=== PATIENT | female | born 1940 | race Hispanic/Latino ===

== ENCOUNTER → 2019-02-11 | Outpatient (CLI) | payer OTHER, MEDICAID ==
[~2019-02-11] MED LIST: ACET-2247 PO; ASPI-555 PO; ATEN100T PO; CITA-107 PO; FOLI0.8C PO; INSLAN SQ; INSU100V SQ; LIRA0.6P SQ; LOSA25TA41 PO; SIMV40TA5 PO
== END | disposition home or self-care (01) ==
LOC: RAH 14:03
PROVIDERS: ATTEND Internal Medicine
DX: G31.89 Other specified degenerative diseases of nervous system (principal)
CPT/HCPCS: 70450

== ENCOUNTER → 2019-03-30 | Outpatient (CLI) | payer OTHER, MEDICARE | END | disposition home or self-care (01) | LOC: RAH 09:08 | PROVIDERS: ATTEND Internal Medicine | DX: E04.2 Nontoxic multinodular goiter (principal) | CPT/HCPCS: 76536 ==

== ENCOUNTER 2019-06-27 14:06 | Emergency (ER) | payer OTHER, MEDICARE ==
[~2019-06-27 14:06] MED LIST changes: +SIMV-46 PO; -SIMV40TA5 PO
[2019-06-27] MEDS ORDERED: LIDOCAINE 1%-EPI 1:100,000 20 ML VIAL IJ ONE (15:08)
[2019-06-27 15:36] LABS: BASOPHILS % (AUTO) 0.4 % (0.0-5.0); EOSINOPHILS % (AUTO) 0.3 % (0.0-8.0); HEMATOCRIT 31.2 % (36-48); LYMPHOCYTES % (AUTO) 14.5 % (21.0-51.0); MEAN CORPUSCULAR HGB CONC 33.3 g/dL (32.0-36.0); MEAN CORPUSCULAR VOLUME 89.9 fL (79-99); MONOCYTES % (AUTO) 6.9 % (3.0-13.0); NEUTROPHILS % (AUTO) 77.5 % (40.0-77.0); PLATELET COUNT (AUTO) 224 K/uL (130-400); RED BLOOD CELL COUNT(AUTO) 3.47 MIL/uL (4.00-5.50); RED CELL DISTRIBUTION WIDTH 11.5 % (11.0-15.5); WHITE BLOOD COUNT (AUTO) 7.5 K/uL (4.8-10.8)
[2019-06-27 15:56] LABS: INR 0.93 (0.85-1.15); PARTIAL THROMBOPLASTIN TIME 24.3 SEC (26.3-35.5); PROTHROMBIN TIME 9.8 SEC (9.6-11.6)
[2019-06-27 16:47] LABS: POTASSIUM 4.9 mmol/L (3.5-5.1)
[2019-06-27 16:51] LABS: ALBUMIN 3.1 g/dL (3.5-5.0); BILIRUBIN,TOTAL 0.5 mg/dL (0.2-1.0)
[2019-06-27] MEDS ORDERED: ACETAMINOPHEN EXTRA STRENGTH 500 MG TABLET ONE (17:00)
[2019-06-27] MEDS ORDERED: TETANUS/DIPHTHERIA TOXOID [ADULT] 0.5 ML VIAL IM ONE (17:00)
== END 2019-06-27 17:13 | disposition home or self-care (01) ==
LOC: EDH 14:06
DX: S61.411A Laceration without foreign body of right hand, initial encounter (principal); S46.912A Strain of unspecified muscle, fascia and tendon at shoulder and upper arm level, left arm, initial encounter; S00.83XA Contusion of other part of head, initial encounter; S80.212A Abrasion, left knee, initial encounter; S80.211A Abrasion, right knee, initial encounter; E11.9 Type 2 diabetes mellitus without complications; I10 Essential (primary) hypertension; W01.0XXA Fall on same level from slipping, tripping and stumbling without subsequent striking against object, initial encounter; Y93.01 Activity, walking, marching and hiking; Y92.098 Other place in other non-institutional residence as the place of occurrence of the external cause; Y99.8 Other external cause status
CPT/HCPCS: 12044; 36415; 70450; 72125; 73030; 73130; 80053; 85025; 85610; 85730; 90471; 90714; 99285; J3490

== ENCOUNTER → 2020-03-19 | Outpatient (CLI) | payer OTHER, MEDICARE ==
[~2020-03-19] MED LIST changes: -ASPI-555 PO; +ASPI-556 PO
== END | disposition home or self-care (01) ==
LOC: RAH 10:05
PROVIDERS: ATTEND Internal Medicine
DX: R06.02 Shortness of breath (principal)
CPT/HCPCS: 71046

== ENCOUNTER 2020-03-26 19:43 | Emergency (ER) | payer OTHER, MEDICARE ==
[2020-03-26 21:02] LABS: BASOPHILS % (AUTO) 0.9 % (0.0-5.0); EOSINOPHILS % (AUTO) 3.2 % (0.0-8.0); HEMATOCRIT 30.9 % (36-48); LYMPHOCYTES % (AUTO) 28.6 % (21.0-51.0); MEAN CORPUSCULAR HGB CONC 33.3 g/dL (32.0-36.0); MEAN CORPUSCULAR VOLUME 90.1 fL (79-99); MONOCYTES % (AUTO) 15.7 % (3.0-13.0); NEUTROPHILS % (AUTO) 51.4 % (40.0-77.0); PLATELET COUNT (AUTO) 182 K/uL (130-400); RED BLOOD CELL COUNT(AUTO) 3.43 MIL/uL (4.00-5.50); RED CELL DISTRIBUTION WIDTH 12.3 % (11.0-15.5); WHITE BLOOD COUNT (AUTO) 4.3 K/uL (4.8-10.8)
[2020-03-26 21:15] LABS: CREATININE 1.7 mg/dL (0.5-1.5); POTASSIUM 4.9 mmol/L (3.5-5.1)
[2020-03-26] MEDS ORDERED: ALPRAZOLAM 0.25 MG TABLET ONE (21:43)
== END 2020-03-26 22:00 | disposition home or self-care (01) ==
LOC: EDH 19:43
DX: I10 Essential (primary) hypertension (principal); E11.9 Type 2 diabetes mellitus without complications; Z79.899 Other long term (current) drug therapy; Z98.890 Other specified postprocedural states
CPT/HCPCS: 36415; 80048; 84484; 85025; 93005

== ENCOUNTER 2020-03-28 15:38 | Observation (INO) | payer OTHER, MEDICARE ==
[~2020-03-28] VITALS: Ht 167.6 cm; Wt 86.2 kg
[2020-03-28 16:33] LABS: BASOPHILS % (AUTO) 0.5 % (0.0-5.0); HEMATOCRIT 31.2 % (36-48); LYMPHOCYTES % (AUTO) 29.5 % (21.0-51.0); MEAN CORPUSCULAR HEMOGLOBIN 29.8 pg (27.0-33.0); MEAN CORPUSCULAR VOLUME 87.6 fL (79-99); MONOCYTES % (AUTO) 11.6 % (3.0-13.0); NEUTROPHILS % (AUTO) 56.2 % (40.0-77.0); PLATELET COUNT (AUTO) 186 K/uL (130-400); RED BLOOD CELL COUNT(AUTO) 3.56 MIL/uL (4.00-5.50); RED CELL DISTRIBUTION WIDTH 11.9 % (11.0-15.5); WHITE BLOOD COUNT (AUTO) 5.5 K/uL (4.8-10.8)
[2020-03-28 16:45] LABS: CREATININE 1.6 mg/dL (0.5-1.5)
[2020-03-28 16:46] LABS: INR 0.9 (0.85-1.15); PARTIAL THROMBOPLASTIN TIME 24.9 SEC (26.3-35.5); PROTHROMBIN TIME 9.8 SEC (9.6-11.6)
[2020-03-28 16:50] LABS: ALBUMIN 3.5 g/dL (3.5-5.0); BILIRUBIN,TOTAL 0.4 mg/dL (0.2-1.0); TOTAL PROTEIN, SERUM 7.3 g/dL (6.0-8.3)
[2020-03-28 17:00] LABS: B-TYPE NATRIURETIC PEPTIDE 88 pg/mL (0-100)
[2020-03-28] MEDS ORDERED: INSULIN HUMULIN R 100 UNIT/ML 3ML ONE (17:47)
[2020-03-28] MEDS ORDERED: SODIUM CHLORIDE 0.9% 500ML 500 ML IV ONE ×2 (17:48→18:29)
[2020-03-28] MEDS ORDERED: CLONIDINE HCL 0.1 MG TABLET PO PRN (20:30)
[2020-03-28] MEDS ORDERED: HYDRALAZINE HCL 25 MG TABLET ONE (20:55)
[2020-03-28] MEDS ORDERED: CARVEDILOL 6.25 MG TABLET PO ONE (20:55)
[2020-03-28] MEDS: CARVEDILOL 6.25 MG TABLET PO SCH (21:00)
[2020-03-28] MEDS: HYDRALAZINE HCL 25 MG TABLET PO SCH (21:00)
[2020-03-28] MEDS ORDERED: CARV12.511 PO (23:28)
[2020-03-28] MEDS ORDERED: CLON0.1T PO (23:28)
[2020-03-28] MEDS ORDERED: HYDR-4153 PO (23:28)
[2020-03-28] MEDS ORDERED: FURO20TA4 PO (23:28)
[2020-03-29 00:29] VITALS: BP 152/61
[2020-03-29 04:59] VITALS: BP 122/48
[2020-03-29] MEDS: INSULIN R PO SS1 SQ SCH ×2 (07:30→12:26)
[2020-03-29 08:00] VITALS: BP 145/62
[2020-03-29] MEDS ORDERED: MAG HYDROX/AL HYDROX/SIMETH ES 30 ML SUSP UDCUP PO PRN (08:00)
[2020-03-29] MEDS ORDERED: SODIUM CHLORIDE 0.9% 1000ML 1,000 ML IV SCH (08:00)
[2020-03-29] MEDS ORDERED: ONDANSETRON HCL 4 MG/2 ML VIAL IV PRN (08:00)
[2020-03-29] MEDS ORDERED: ACETAMINOPHEN 325 MG TAB PO PRN ×2 (08:00)
[2020-03-29] MEDS ORDERED: LACTULOSE 20 GM/30 ML UDCUP PO PRN (08:00)
[2020-03-29] MEDS ORDERED: FUROSEMIDE 10 MG/ML 4ML VIAL IV SCH (08:15)
[2020-03-29] MEDS ORDERED: INSLAN SQ (08:27)
[2020-03-29] MEDS ORDERED: INSU100V SQ (08:27)
[2020-03-29] MEDS ORDERED: CLON0.1T PO (08:27)
[2020-03-29] MEDS ORDERED: AEC81 PO (08:27)
[2020-03-29 08:51] LABS: CREATININE 1.6 mg/dL (0.5-1.5); POTASSIUM 5.4 mmol/L (3.5-5.1)
[2020-03-29] MEDS ORDERED: FAMOTIDINE 20MG TAB 20 MG TAB PO SCH (09:00)
[2020-03-29] MEDS ORDERED: NON-FORMULARY MEDICATION 1 EACH (Atenolol 100 MG) PO SCH (09:00)
[2020-03-29] MEDS ORDERED: ENOXAPARIN SODIUM 30 MG/0.3 ML SQ SCH (09:00)
[2020-03-29] MEDS ORDERED: CITALOPRAM 20 MG TABLET PO SCH (09:00)
[2020-03-29] MEDS ORDERED: LOSARTAN 100 MG TABLET PO SCH ×2 (09:00)
[2020-03-29] MEDS ORDERED: FOLIC ACID 1 MG TABLET PO SCH (09:00)
[2020-03-29] MEDS ORDERED: FUROSEMIDE 20 MG TABLET PO SCH (09:00)
[2020-03-29] MEDS: HYDRALAZINE HCL 25 MG TABLET PO SCH (09:31)
[2020-03-29] MEDS: CARVEDILOL 6.25 MG TABLET PO SCH (09:32)
[2020-03-29] MEDS ORDERED: LOSARTAN 100 MG TABLET ONE (09:47)
[2020-03-29 12:00] VITALS: BP 130/53
[2020-03-29] MEDS ORDERED: INSULIN GLARGINE 100 UNITS/ML 10 ML VIAL SQ SCH (12:00)
[2020-03-29] MEDS ORDERED: DEXTROSE 50%-WATER 50 ML DISP.SYRIN IV PRN (12:00)
[2020-03-29] MEDS ORDERED: GLUCAGON 1MG KIT 1 MG ML IM PRN (12:00)
[2020-03-29] MEDS ORDERED: CARV12.511 PO (14:28)
[2020-03-29] MEDS ORDERED: FURO40TA5 PO (14:28)
[2020-03-29] MEDS ORDERED: INSULIN HUMULIN R 100 UNIT/ML 3ML SQ SCH (16:30)
[2020-03-29] MEDS ORDERED: SIMVASTATIN 20 MG TABLET PO SCH (21:00)
[2020-03-29] MEDS ORDERED: ASPIRIN 81 MG EC TAB PO SCH (21:00)
== END 2020-03-29 16:15 | disposition home or self-care (01) ==
LOC: EDH 15:38 → EDHIP 18:27 → 3DH 21:45
PROVIDERS: ADMIT Internal Medicine; ATTEND Internal Medicine
DX: I13.0 Hypertensive heart and chronic kidney disease with heart failure and stage 1 through stage 4 chronic kidney disease, or unspecified chronic kidney disease (principal); E11.22 Type 2 diabetes mellitus with diabetic chronic kidney disease; I50.32 Chronic diastolic (congestive) heart failure; N18.30 Chronic kidney disease, stage 3 unspecified; E11.42 Type 2 diabetes mellitus with diabetic polyneuropathy; E11.3513 Type 2 diabetes mellitus with proliferative diabetic retinopathy with macular edema, bilateral; E11.51 Type 2 diabetes mellitus with diabetic peripheral angiopathy without gangrene; E78.2 Mixed hyperlipidemia; E86.0 Dehydration; I65.23 Occlusion and stenosis of bilateral carotid arteries; I70.0 Atherosclerosis of aorta; F32.1 Major depressive disorder, single episode, moderate; E04.2 Nontoxic multinodular goiter; E87.1 Hypo-osmolality and hyponatremia; E11.65 Type 2 diabetes mellitus with hyperglycemia; I27.20 Pulmonary hypertension, unspecified; R32 Unspecified urinary incontinence; Z86.73 Personal history of transient ischemic attack (TIA), and cerebral infarction without residual deficits; Z79.4 Long term (current) use of insulin; Z79.82 Long term (current) use of aspirin; Z79.899 Other long term (current) drug therapy
CPT/HCPCS: 36415 ×2; 71045; 80048; 80053; 82550; 82948 ×2; 83880; 84484; 85025; 85610; 85730; 93005; 96372; 96374; 99285; G0378 ×7; J1650; J1815 ×2; J1940; J7040 ×2

== ENCOUNTER 2020-12-01 10:37 | Inpatient (IN) | payer OTHER, MEDICARE ==
[2020-11-30] MEDS: AZITHROMYCIN 250 MG TABLET PO SCH (19:55)
[~2020-12-01] VITALS: Ht 167.6 cm; Wt 85.5 kg
[2020-12-01] VITALS (7 sets, daily range): BP systolic 119–151; BP diastolic 40–80
[2020-12-01] MEDS: INSULIN R PO SS1 SQ SCH ×2 (07:30→16:30)
[~2020-12-01 10:37] MED LIST changes: -ACET-2247 PO; +AEC81 PO; -ASPI-556 PO; -ATEN100T PO; +CARV12.511 PO; +CLON0.1T PO; +FURO20TA4 PO; +FURO40TA5 PO; +HYDR-4153 PO; -LIRA0.6P SQ
[2020-12-01 12:28] LABS: BASOPHILS % (AUTO) 0.4 % (0.0-5.0); EOSINOPHILS % (AUTO) 0.8 % (0.0-8.0); HEMATOCRIT 29.9 % (36-48); LYMPHOCYTES % (AUTO) 16.4 % (21.0-51.0); MEAN CORPUSCULAR HGB CONC 32.4 g/dL (32.0-36.0); MEAN CORPUSCULAR VOLUME 95.5 fL (79-99); PLATELET COUNT (AUTO) 149 K/uL (130-400); RED BLOOD CELL COUNT(AUTO) 3.13 MIL/uL (4.00-5.50); RED CELL DISTRIBUTION WIDTH 12.7 % (11.0-15.5); WHITE BLOOD COUNT (AUTO) 8.5 K/uL (4.8-10.8)
[2020-12-01 12:45] LABS: INR 1.04 (0.85-1.15); PROTHROMBIN TIME 11.3 SEC (9.6-11.6)
[2020-12-01 12:50] LABS: ALBUMIN 2.9 g/dL (3.5-5.0); B-TYPE NATRIURETIC PEPTIDE 123 pg/mL (0-100); BILIRUBIN,TOTAL 0.6 mg/dL (0.2-1.0); CREATININE 1.4 mg/dL (0.5-1.5); MAGNESIUM 1.5 mg/dL (1.80-2.40); POTASSIUM 4.7 mmol/L (3.5-5.1); TOTAL PROTEIN, SERUM 6.2 g/dL (6.0-8.3)
[2020-12-01] MEDS ORDERED: POTASSIUM CHLORIDE 10% ELIXIR 20 MEQ/15 ML UDCUP PO PRN (15:00)
[2020-12-01] MEDS ORDERED: DEXTROSE 50%-WATER 50 ML DISP.SYRIN IV PRN (15:00)
[2020-12-01] MEDS: AZITHROMYCIN 250 MG TABLET PO SCH ×2 (15:00→19:59)
[2020-12-01] MEDS ORDERED: LIDOCAINE HCL-MPF 1% 2ML VIAL IJ PRN (15:00)
[2020-12-01] MEDS ORDERED: KCL 20 MEQ ERTAB PO PRN (15:00)
[2020-12-01] MEDS ORDERED: POTASSIUM CHLORIDE 20MEQ/100ML 100 ML IV PRN (15:00)
[2020-12-01] MEDS ORDERED: ALBUTEROL 0.083% 2.5 MG/3 ML INH IH PRN (15:00)
[2020-12-01] MEDS ORDERED: FUROSEMIDE 40MG VIAL IVP ONE (15:00)
[2020-12-01] MEDS ORDERED: 0.9%NACL 10ML VIAL IVP PRN (15:00)
[2020-12-01] MEDS ORDERED: GLUCAGON 1MG KIT 1 MG ML IM PRN (15:00)
[2020-12-01] MEDS ORDERED: ATOR40TA71 PO (17:47)
[2020-12-02] VITALS (8 sets, daily range): BP systolic 108–189; BP diastolic 34–83
[2020-12-02] MEDS ORDERED: FLUT1BLS3 IH (01:04)
[2020-12-02] MEDS ORDERED: ACETAMINOPHEN 325 MG TAB PO PRN (01:30)
[2020-12-02] MEDS ORDERED: ASPIRIN 81 MG EC TAB PO SCH (01:30)
[2020-12-02] MEDS ORDERED: GUAIFENESIN-CODEINE 5 ML SYRUP PO PRN (01:30)
[2020-12-02] MEDS ORDERED: DIPHENHYDRAMINE HCL 25 MG CAPSULE PO PRN (01:30)
[2020-12-02] MEDS ORDERED: DEXTROSE 50%-WATER 50 ML DISP.SYRIN IV PRN (01:30)
[2020-12-02] MEDS ORDERED: NITROGLYCERIN 0.4 MG SL TAB SL PRN (01:30)
[2020-12-02] MEDS ORDERED: POTASSIUM CHLORIDE 20MEQ/100ML 100 ML IV PRN (01:30)
[2020-12-02] MEDS ORDERED: LIDOCAINE HCL-MPF 1% 2ML VIAL IV PRN (01:30)
[2020-12-02] MEDS ORDERED: ONDANSETRON 4MG INJ IV PRN (01:30)
[2020-12-02] MEDS ORDERED: GLUCAGON 1MG KIT 1 MG ML IM PRN (01:30)
[2020-12-02] MEDS ORDERED: LACTULOSE 20 GM/30 ML UDCUP PO PRN (01:30)
[2020-12-02] MEDS ORDERED: KCL 20 MEQ ERTAB PO PRN (01:30)
[2020-12-02] MEDS ORDERED: POTASSIUM CHLORIDE 10% ELIXIR 20 MEQ/15 ML UDCUP PO PRN (01:30)
[2020-12-02] MEDS ORDERED: DiphenhydrAMINE HCL 50 MG/ML VIAL IV PRN (01:30)
[2020-12-02] MEDS ORDERED: MAG/ALUM/SIMETH 30 ML UDCUP PO PRN (01:30)
[2020-12-02] MEDS ORDERED: ALBUTEROL 0.083% 2.5 MG/3 ML INH IH PRN (01:30)
[2020-12-02] MEDS: HYDRALAZINE 25MG TABLET PO SCH ×2 (01:47→21:25)
[2020-12-02] MEDS ORDERED: HYDRALAZINE 25MG TABLET ONE (01:47)
[2020-12-02] MEDS: INSULIN R PO SS1 SQ SCH ×4 (07:30→21:00)
[2020-12-02] MEDS: ALBUTEROL 0.083% 2.5 MG/3 ML INH IH SCH ×4 (07:31→23:44)
[2020-12-02] MEDS ORDERED: LOSARTAN 25 MG TABLET PO ONE (07:33)
[2020-12-02] MEDS ORDERED: HYDRALAZINE 20MG/ML VIAL IM PRN (08:00)
[2020-12-02] MEDS: ATORVASTATIN 40 MG TABLET PO SCH (08:00)
[2020-12-02] MEDS: CARVEDILOL 12.5 MG TABLET PO SCH ×2 (08:00→21:25)
[2020-12-02] MEDS: LOSARTAN 25 MG TABLET PO SCH (08:00)
[2020-12-02] MEDS: FUROSEMIDE 40 MG TABLET PO SCH (08:00)
[2020-12-02] MEDS: PANTOPRAZOLE 40 MG TAB DR PO SCH (08:00)
[2020-12-02] MEDS: CITALOPRAM 20 MG TABLET PO SCH (08:00)
[2020-12-02] MEDS: NITROGLYCERIN 1GM OINT 1 INCH/1GM TD SCH ×3 (08:00→18:00)
[2020-12-02] MEDS: ENOXAPARIN SODIUM 30 MG/0.3 ML SQ SCH (08:01)
[2020-12-02 08:23] LABS: HEMATOCRIT 32.8 % (36-48); MEAN CORPUSCULAR HEMOGLOBIN 30.3 pg (27.0-33.0); MEAN CORPUSCULAR VOLUME 94.5 fL (79-99); RED BLOOD CELL COUNT(AUTO) 3.47 MIL/uL (4.00-5.50); RED CELL DISTRIBUTION WIDTH 12.7 % (11.0-15.5); WHITE BLOOD COUNT (AUTO) 7.3 K/uL (4.8-10.8)
[2020-12-02 08:26] LABS: CREATININE 1.3 mg/dL (0.5-1.5); POTASSIUM 4.1 mmol/L (3.5-5.1)
[2020-12-02] MEDS: ASPIRIN 81 MG EC TAB PO SCH (09:00)
[2020-12-02] MEDS: INSULIN GLARGINE 100 UNITS/ML 10 ML VIAL SQ SCH (09:00)
[2020-12-02] MEDS: AMLODIPINE 5 MG TAB PO SCH (11:59)
[2020-12-02] MEDS: ACETAMINOPHEN 325 MG TAB PO PRN (18:51)
[2020-12-03] VITALS (12 sets, daily range): BP systolic 86–182; BP diastolic 32–63
[2020-12-03 03:31] LABS: HEMATOCRIT 31.2 % (36-48); MEAN CORPUSCULAR HEMOGLOBIN 31.2 pg (27.0-33.0); MEAN CORPUSCULAR HGB CONC 32.7 g/dL (32.0-36.0); MEAN CORPUSCULAR VOLUME 95.4 fL (79-99); RED BLOOD CELL COUNT(AUTO) 3.27 MIL/uL (4.00-5.50); RED CELL DISTRIBUTION WIDTH 12.7 % (11.0-15.5); WHITE BLOOD COUNT (AUTO) 7.3 K/uL (4.8-10.8)
[2020-12-03 03:43] LABS: CREATININE 1.6 mg/dL (0.5-1.5); POTASSIUM 4.8 mmol/L (3.5-5.1)
[2020-12-03] MEDS: NITROGLYCERIN 1GM OINT 1 INCH/1GM TD SCH ×2 (05:45)
[2020-12-03] MEDS: INSULIN R PO SS1 SQ SCH ×4 (05:55→21:18)
[2020-12-03] MEDS: ALBUTEROL 0.083% 2.5 MG/3 ML INH IH SCH ×4 (06:48→22:58)
[2020-12-03] MEDS ORDERED: NITROGLYCERIN 2 MG VIAL IV ONE (07:29)
[2020-12-03] MEDS ORDERED: IOHEXOL 350 MG/ML 100ML INFUS..BTL IV ONE (07:29)
[2020-12-03] MEDS ORDERED: HEPARIN 10,000 UNIT/10ML (1,000 UNIT/ML) VIAL ONE (07:29)
[2020-12-03] MEDS ORDERED: IOHEXOL-350 50ML VIAL IV ONE (07:29)
[2020-12-03] MEDS ORDERED: BIVALIRUDIN 250 MG/VIAL IV ONE (07:29)
[2020-12-03] MEDS ORDERED: LIDOCAINE HCL 400MG/20ML VIAL ONE (07:30)
[2020-12-03] MEDS ORDERED: FENTANYL CITRATE PF 50 MCG/1 ML 2ML VIAL ONE (07:30)
[2020-12-03] MEDS ORDERED: MIDAZOLAM HCL 1 MG/ML 2ML VIAL ONE (07:30)
[2020-12-03] MEDS ORDERED: LABETALOL 20MG VIAL IV ONE (08:37)
[2020-12-03] MEDS ORDERED: HYDRALAZINE 20MG/ML VIAL IV PRN (09:00)
[2020-12-03] MEDS ORDERED: 0.9%NACL 1000ML 1,000 ML IV SCH (09:00)
[2020-12-03] MEDS: ENOXAPARIN SODIUM 30 MG/0.3 ML SQ SCH (09:00)
[2020-12-03] MEDS: CITALOPRAM 20 MG TABLET PO SCH (09:38)
[2020-12-03] MEDS: ATORVASTATIN 40 MG TABLET PO SCH (09:38)
[2020-12-03] MEDS: AMLODIPINE 5 MG TAB PO SCH (09:38)
[2020-12-03] MEDS: FUROSEMIDE 40 MG TABLET PO SCH (09:39)
[2020-12-03] MEDS: ASPIRIN 81 MG EC TAB PO SCH (09:39)
[2020-12-03] MEDS: CARVEDILOL 12.5 MG TABLET PO SCH ×2 (09:39→21:14)
[2020-12-03] MEDS: LOSARTAN 25 MG TABLET PO SCH (09:43)
[2020-12-03] MEDS: PANTOPRAZOLE 40 MG TAB DR PO SCH (09:43)
[2020-12-03] MEDS: HYDRALAZINE 25MG TABLET PO SCH ×2 (09:44→21:00)
[2020-12-03] MEDS: ISOSORBIDE MONO 60MG SR TAB PO SCH (09:46)
[2020-12-03] MEDS: INSULIN GLARGINE 100 UNITS/ML 10 ML VIAL SQ SCH (10:12)
[2020-12-03] MEDS: ACETAMINOPHEN 325 MG TAB PO PRN (10:34)
[2020-12-03] MEDS ORDERED: AMLO5TAB4 PO (10:44)
[2020-12-03] MEDS ORDERED: AEC81 PO (10:44)
[2020-12-03] MEDS ORDERED: ISOS60TA77 PO (10:45)
[2020-12-03] MEDS: AZITHROMYCIN 250 MG TABLET PO SCH (14:50)
[2020-12-04 03:10] VITALS: BP 124/55
[2020-12-04] MEDS: INSULIN R PO SS1 SQ SCH ×3 (06:07→20:50)
[2020-12-04] MEDS: ALBUTEROL 0.083% 2.5 MG/3 ML INH IH SCH ×3 (06:46→18:58)
[2020-12-04 08:46] VITALS: BP 136/55
[2020-12-04 09:01] LABS: POTASSIUM 4.4 mmol/L (3.5-5.1)
[2020-12-04] MEDS: PANTOPRAZOLE 40 MG TAB DR PO SCH (10:35)
[2020-12-04] MEDS: ASPIRIN 81 MG EC TAB PO SCH (10:35)
[2020-12-04] MEDS: ATORVASTATIN 40 MG TABLET PO SCH (10:35)
[2020-12-04] MEDS: CARVEDILOL 12.5 MG TABLET PO SCH ×2 (10:35→20:42)
[2020-12-04] MEDS: CITALOPRAM 20 MG TABLET PO SCH (10:35)
[2020-12-04] MEDS: ISOSORBIDE MONO 60MG SR TAB PO SCH (10:37)
[2020-12-04] MEDS: ENOXAPARIN SODIUM 30 MG/0.3 ML SQ SCH (10:37)
[2020-12-04] MEDS: AMLODIPINE 5 MG TAB PO SCH (10:37)
[2020-12-04] MEDS: HYDRALAZINE 25MG TABLET PO SCH ×2 (10:38→20:41)
[2020-12-04] MEDS: INSULIN GLARGINE 100 UNITS/ML 10 ML VIAL SQ SCH (10:40)
[2020-12-04] MEDS: 0.9%NACL 1000ML 1,000 ML IV SCH ×2 (10:44→20:00)
[2020-12-04 11:42] VITALS: BP 136/62
[2020-12-04 16:54] VITALS: BP 120/52
[2020-12-04 19:00] VITALS: BP 118/49
[2020-12-04 23:56] VITALS: BP 142/54
[2020-12-05] MEDS: ALBUTEROL 0.083% 2.5 MG/3 ML INH IH SCH ×2 (00:26→06:32)
[2020-12-05 02:45] LABS: POTASSIUM 4.1 mmol/L (3.5-5.1)
[2020-12-05 04:00] VITALS: BP 139/56
[2020-12-05] MEDS: 0.9%NACL 1000ML 1,000 ML IV SCH (06:00)
[2020-12-05] MEDS: INSULIN R PO SS1 SQ SCH ×2 (06:09→13:15)
[2020-12-05 08:00] VITALS: BP 152/65
[2020-12-05] MEDS ORDERED: NITR0.4T SL (08:32)
[2020-12-05] MEDS: ASPIRIN 81 MG EC TAB PO SCH (10:14)
[2020-12-05] MEDS: CARVEDILOL 12.5 MG TABLET PO SCH (10:14)
[2020-12-05] MEDS: PANTOPRAZOLE 40 MG TAB DR PO SCH (10:15)
[2020-12-05] MEDS: ATORVASTATIN 40 MG TABLET PO SCH (10:15)
[2020-12-05] MEDS: HYDRALAZINE 25MG TABLET PO SCH (10:15)
[2020-12-05] MEDS: ENOXAPARIN SODIUM 30 MG/0.3 ML SQ SCH (10:16)
[2020-12-05] MEDS: INSULIN GLARGINE 100 UNITS/ML 10 ML VIAL SQ SCH (10:31)
[2020-12-05 12:38] VITALS: BP 123/44
[2020-12-05] MEDS: ISOSORBIDE MONO 60MG SR TAB PO SCH (13:10)
[2020-12-05] MEDS: AMLODIPINE 5 MG TAB PO SCH (13:10)
[2020-12-05] MEDS: CITALOPRAM 20 MG TABLET PO SCH (13:11)
== END 2020-12-05 16:22 | disposition home or self-care (01) | DRG 280 ==
LOC: EDH 10:37 → OBSVTOIN 14:20 → EDHIP 14:20 → 4DH 12-02 22:06
PROVIDERS: ADMIT Internal Medicine; ATTEND Internal Medicine
PROC: 4A023N7 Measurement of Cardiac Sampling and Pressure, Left Heart, Percutaneous Approach (ICD-10-PCS; principal; 2020-12-03)
PROC: B2111ZZ Fluoroscopy of Multiple Coronary Arteries using Low Osmolar Contrast (ICD-10-PCS; 2020-12-03)
PROC: B2151ZZ Fluoroscopy of Left Heart using Low Osmolar Contrast (ICD-10-PCS; 2020-12-03)
DX: I21.4 Non-ST elevation (NSTEMI) myocardial infarction (principal); I50.33 Acute on chronic diastolic (congestive) heart failure; I13.0 Hypertensive heart and chronic kidney disease with heart failure and stage 1 through stage 4 chronic kidney disease, or unspecified chronic kidney disease; F32.1 Major depressive disorder, single episode, moderate; I31.3 Pericardial effusion (noninflammatory); J44.0 Chronic obstructive pulmonary disease with (acute) lower respiratory infection; J20.9 Acute bronchitis, unspecified; N18.32 Chronic kidney disease, stage 3b; E04.2 Nontoxic multinodular goiter; E11.319 Type 2 diabetes mellitus with unspecified diabetic retinopathy without macular edema; E78.5 Hyperlipidemia, unspecified; F41.9 Anxiety disorder, unspecified; H35.30 Unspecified macular degeneration; I25.10 Atherosclerotic heart disease of native coronary artery without angina pectoris; I25.84 Coronary atherosclerosis due to calcified coronary lesion; I27.20 Pulmonary hypertension, unspecified; I35.8 Other nonrheumatic aortic valve disorders; E11.22 Type 2 diabetes mellitus with diabetic chronic kidney disease; E11.65 Type 2 diabetes mellitus with hyperglycemia; E11.311 Type 2 diabetes mellitus with unspecified diabetic retinopathy with macular edema; E11.51 Type 2 diabetes mellitus with diabetic peripheral angiopathy without gangrene; I70.0 Atherosclerosis of aorta; M19.90 Unspecified osteoarthritis, unspecified site; N39.498 Other specified urinary incontinence; Z20.822 Contact with and (suspected) exposure to COVID-19; Z79.899 Other long term (current) drug therapy; I25.2 Old myocardial infarction; Z79.4 Long term (current) use of insulin; Z86.73 Personal history of transient ischemic attack (TIA), and cerebral infarction without residual deficits; Z82.3 Family history of stroke; Z83.3 Family history of diabetes mellitus; Z82.5 Family history of asthma and other chronic lower respiratory diseases; Z82.49 Family history of ischemic heart disease and other diseases of the circulatory system
CPT/HCPCS: 36415; 71045; 80048; 80053; 82550; 82948; 83735; 83880; 84484; 85025; 85027; 85610; 87635; 87804; 93005; 93306; 93356; 93458; 94640; 94664; 99156; 99157; C1769; C1887; C1894; C9803; G0378; J0583; J1644; J1650; J1815; J1940; J2250; J3010; J3490; J7030; Q9967

== ENCOUNTER 2022-02-22 12:10 | Emergency (ER) | payer OTHER, MEDICARE ==
[~2022-02-22] VITALS: Ht 170.2 cm; Wt 84.4 kg
[~2022-02-22 12:10] MED LIST changes: +AMLO5TAB4 PO; +ATOR40TA71 PO; +FLUT1BLS3 IH; -FURO20TA4 PO; +ISOS60TA77 PO; +NITR0.4T SL; -SIMV-46 PO
[2022-02-22] MEDS ORDERED: LIDOCAINE 5% TOPICAL PATCH TP ONE (15:30)
[2022-02-22] MEDS ORDERED: CYCL5TAB PO (15:32)
[2022-02-22 15:33] VITALS: BP 129/48
== END 2022-02-22 16:15 | disposition home or self-care (01) ==
LOC: EDH 12:10
DX: M54.50 Low back pain, unspecified (principal); E11.9 Type 2 diabetes mellitus without complications; I10 Essential (primary) hypertension; Z79.4 Long term (current) use of insulin; Z79.82 Long term (current) use of aspirin; Z79.899 Other long term (current) drug therapy; W01.198A Fall on same level from slipping, tripping and stumbling with subsequent striking against other object, initial encounter; Y93.89 Activity, other specified; Y92.89 Other specified places as the place of occurrence of the external cause; Y99.8 Other external cause status
CPT/HCPCS: 72100; 73521; 82948; 93005

== ENCOUNTER 2022-03-12 11:19 | Observation (INO) | payer OTHER, MEDICARE ==
[~2022-03-12] VITALS: Ht 167.6 cm; Wt 83.9 kg
[~2022-03-12 11:19] MED LIST changes: +CYCL5TAB PO
[2022-03-12] MEDS ORDERED: KETOROLAC 15MG/ML VIAL (15MG/ML) ONE (12:40)
[2022-03-12] MEDS ORDERED: KETOROLAC 15MG/ML VIAL (15MG/ML) IM ONE (13:00)
[2022-03-12] MEDS ORDERED: ALBU2.5V2 IH (15:55)
[2022-03-12] MEDS ORDERED: INSU100V SQ (15:55)
[2022-03-12] MEDS ORDERED: TIZA-194 PO (15:55)
[2022-03-12] MEDS ORDERED: AMLO5TAB4 PO (15:55)
[2022-03-12] MEDS ORDERED: CARV6.25 PO (15:55)
[2022-03-12] MEDS ORDERED: 0.9%NACL 1000ML 1,000 ML IV SCH (16:00)
[2022-03-12] MEDS ORDERED: ACETAMINOPHEN 325 MG TAB PO PRN (16:00)
[2022-03-12] MEDS ORDERED: MORPHINE 2 MG SYG IVP PRN (16:00)
[2022-03-12] MEDS ORDERED: ONDANSETRON 4MG INJ IVP PRN (16:00)
[2022-03-12] MEDS ORDERED: ACETAMINOPHEN WITH CODEINE 1 TAB TAB PO PRN ×2 (16:00)
[2022-03-12 16:16] LABS: BASOPHILS % (AUTO) 0.3 % (0.0-5.0); EOSINOPHILS % (AUTO) 0.8 % (0.0-8.0); LYMPHOCYTES % (AUTO) 15.1 % (21.0-51.0); MEAN CORPUSCULAR HEMOGLOBIN 29.8 pg (27.0-33.0); MEAN CORPUSCULAR HGB CONC 32.7 g/dL (32.0-36.0); MEAN CORPUSCULAR VOLUME 91.2 fL (79-99); MONOCYTES % (AUTO) 5.8 % (3.0-13.0); NEUTROPHILS % (AUTO) 77.7 % (40.0-77.0); PLATELET COUNT (AUTO) 222 K/uL (130-400); RED BLOOD CELL COUNT(AUTO) 3.62 MIL/uL (4.00-5.50); RED CELL DISTRIBUTION WIDTH 13.4 % (11.0-15.5)
[2022-03-12 16:24] LABS: CREATININE 1.6 mg/dL (0.5-1.5); POTASSIUM 5.1 mmol/L (3.5-5.1)
[2022-03-12 16:28] LABS: ALBUMIN 2.8 g/dL (3.5-5.0); TOTAL PROTEIN, SERUM 6.8 g/dL (6.0-8.3)
[2022-03-12] MEDS ORDERED: INSULIN HUMULIN R 100 UNIT/ML 3ML SQ SCH (16:30)
[2022-03-12] MEDS ORDERED: ACETAMINOPHEN WITH CODEINE 1 TAB TAB ONE (16:33)
[2022-03-12 17:38] VITALS: BP 132/69
== END 2022-03-12 17:32 | disposition home or self-care (01) ==
LOC: EDH 11:19 → EDHIP 15:21 → UNDOADMOB 15:21 → EDHIP 15:30
PROVIDERS: ADMIT Internal Medicine; ATTEND Internal Medicine
DX: M25.552 Pain in left hip (principal); I10 Essential (primary) hypertension; E11.9 Type 2 diabetes mellitus without complications; I31.39 Other pericardial effusion (noninflammatory); K57.90 Diverticulosis of intestine, part unspecified, without perforation or abscess without bleeding; W19.XXXA Unspecified fall, initial encounter; Y93.89 Activity, other specified; Y92.89 Other specified places as the place of occurrence of the external cause
CPT/HCPCS: 96372; 99285; 80053; 85025; 36415; 74176; 73721; G0378 ×2; J1885

== ENCOUNTER → 2022-04-10 | Outpatient (CLI) | payer OTHER, MEDICARE ==
[~2022-04-10] MED LIST changes: +ALBU2.5V2 IH; -CARV12.511 PO; +CARV6.25 PO; -CYCL5TAB PO; -LOSA25TA41 PO; +TIZA-194 PO
== END | disposition home or self-care (01) ==
LOC: RAH 09:37
PROVIDERS: ATTEND Internal Medicine
DX: M51.36 Other intervertebral disc degeneration, lumbar region (principal); M54.40 Lumbago with sciatica, unspecified side; R60.0 Localized edema; M79.605 Pain in left leg
CPT/HCPCS: 72110; 93971

== ENCOUNTER → 2022-05-07 | Outpatient (CLI) | payer OTHER, MEDICARE | END | disposition home or self-care (01) | LOC: RAH 08:20 | PROVIDERS: ATTEND Internal Medicine | DX: M48.56XA Collapsed vertebra, not elsewhere classified, lumbar region, initial encounter for fracture (principal); M47.816 Spondylosis without myelopathy or radiculopathy, lumbar region; M48.061 Spinal stenosis, lumbar region without neurogenic claudication | CPT/HCPCS: 72148 ==

== ENCOUNTER → 2022-05-21 | Outpatient (CLI) | payer OTHER, MEDICARE ==
[~2022-05-21] MED LIST changes: +LIDOCAINE HCL 4% LTA SOL 4 ML VIAL TP ONE
== END | disposition home or self-care (01) ==
LOC: WHH 08:06
PROVIDERS: ATTEND Podiatrist Foot & Ankle Surgery
DX: E11.621 Type 2 diabetes mellitus with foot ulcer (principal); L97.411 Non-pressure chronic ulcer of right heel and midfoot limited to breakdown of skin; L97.421 Non-pressure chronic ulcer of left heel and midfoot limited to breakdown of skin; E11.42 Type 2 diabetes mellitus with diabetic polyneuropathy; E11.51 Type 2 diabetes mellitus with diabetic peripheral angiopathy without gangrene; E11.22 Type 2 diabetes mellitus with diabetic chronic kidney disease; I13.0 Hypertensive heart and chronic kidney disease with heart failure and stage 1 through stage 4 chronic kidney disease, or unspecified chronic kidney disease; N18.4 Chronic kidney disease, stage 4 (severe); I50.32 Chronic diastolic (congestive) heart failure; I25.10 Atherosclerotic heart disease of native coronary artery without angina pectoris; M47.816 Spondylosis without myelopathy or radiculopathy, lumbar region; M51.36 Other intervertebral disc degeneration, lumbar region; M48.061 Spinal stenosis, lumbar region without neurogenic claudication; M19.90 Unspecified osteoarthritis, unspecified site; Z86.73 Personal history of transient ischemic attack (TIA), and cerebral infarction without residual deficits; Z79.899 Other long term (current) drug therapy
CPT/HCPCS: G0463

== ENCOUNTER → 2022-06-11 | Outpatient (CLI) | payer OTHER, MEDICARE | END | disposition home or self-care (01) | LOC: WHH 09:04 | PROVIDERS: ATTEND Podiatrist Foot & Ankle Surgery | DX: E11.621 Type 2 diabetes mellitus with foot ulcer (principal); L97.412 Non-pressure chronic ulcer of right heel and midfoot with fat layer exposed; L97.421 Non-pressure chronic ulcer of left heel and midfoot limited to breakdown of skin; L89.619 Pressure ulcer of right heel, unspecified stage; E11.42 Type 2 diabetes mellitus with diabetic polyneuropathy; E11.51 Type 2 diabetes mellitus with diabetic peripheral angiopathy without gangrene; E11.22 Type 2 diabetes mellitus with diabetic chronic kidney disease; I13.0 Hypertensive heart and chronic kidney disease with heart failure and stage 1 through stage 4 chronic kidney disease, or unspecified chronic kidney disease; N18.4 Chronic kidney disease, stage 4 (severe); I50.32 Chronic diastolic (congestive) heart failure; I25.10 Atherosclerotic heart disease of native coronary artery without angina pectoris; M47.816 Spondylosis without myelopathy or radiculopathy, lumbar region; M51.36 Other intervertebral disc degeneration, lumbar region; M48.061 Spinal stenosis, lumbar region without neurogenic claudication; M19.90 Unspecified osteoarthritis, unspecified site; Z86.73 Personal history of transient ischemic attack (TIA), and cerebral infarction without residual deficits; Z79.899 Other long term (current) drug therapy | CPT/HCPCS: 93306; 11042; A6209 ==

== ENCOUNTER → 2022-06-11 | Outpatient (CLI) | payer OTHER, MEDICARE ==
[~2022-06-11] MED LIST changes: -LIDOCAINE HCL 4% LTA SOL 4 ML VIAL TP ONE
== END | disposition home or self-care (01) ==
LOC: SHCH 14:27
PROVIDERS: ATTEND Internal Medicine Cardiovascular Disease
DX: I31.39 Other pericardial effusion (noninflammatory) (principal); I35.8 Other nonrheumatic aortic valve disorders; I11.9 Hypertensive heart disease without heart failure; I25.10 Atherosclerotic heart disease of native coronary artery without angina pectoris; R01.1 Cardiac murmur, unspecified; E78.5 Hyperlipidemia, unspecified
CPT/HCPCS: 93306

== ENCOUNTER → 2022-06-25 | Outpatient (CLI) | payer OTHER, MEDICARE ==
[~2022-06-25] MED LIST changes: +LIDOCAINE HCL 4% LTA SOL 4 ML VIAL TP ONE
== END | disposition home or self-care (01) ==
LOC: WHH 10:23
PROVIDERS: ATTEND Podiatrist Foot & Ankle Surgery
DX: E11.621 Type 2 diabetes mellitus with foot ulcer (principal); L97.412 Non-pressure chronic ulcer of right heel and midfoot with fat layer exposed; L97.421 Non-pressure chronic ulcer of left heel and midfoot limited to breakdown of skin; E11.42 Type 2 diabetes mellitus with diabetic polyneuropathy; E11.51 Type 2 diabetes mellitus with diabetic peripheral angiopathy without gangrene; E11.22 Type 2 diabetes mellitus with diabetic chronic kidney disease; I13.0 Hypertensive heart and chronic kidney disease with heart failure and stage 1 through stage 4 chronic kidney disease, or unspecified chronic kidney disease; N18.4 Chronic kidney disease, stage 4 (severe); I50.32 Chronic diastolic (congestive) heart failure; I25.10 Atherosclerotic heart disease of native coronary artery without angina pectoris; M47.816 Spondylosis without myelopathy or radiculopathy, lumbar region; M51.36 Other intervertebral disc degeneration, lumbar region; M48.061 Spinal stenosis, lumbar region without neurogenic claudication; M19.90 Unspecified osteoarthritis, unspecified site; Z86.73 Personal history of transient ischemic attack (TIA), and cerebral infarction without residual deficits; Z79.899 Other long term (current) drug therapy
CPT/HCPCS: 11042; A6209

== ENCOUNTER → 2022-07-09 | Outpatient (CLI) | payer OTHER, MEDICARE ==
[~2022-07-09] MED LIST changes: -LIDOCAINE HCL 4% LTA SOL 4 ML VIAL TP ONE
== END | disposition home or self-care (01) ==
LOC: RAH 13:03
PROVIDERS: ATTEND Internal Medicine
DX: I70.0 Atherosclerosis of aorta (principal); M47.815 Spondylosis without myelopathy or radiculopathy, thoracolumbar region; R79.81 Abnormal blood-gas level
CPT/HCPCS: 11042; 71046; A6209; A4450

== ENCOUNTER → 2022-07-09 | Outpatient (CLI) | payer OTHER, MEDICARE ==
[~2022-07-09] MED LIST changes: +LIDOCAINE HCL 4% LTA SOL 4 ML VIAL TP ONE
== END | disposition home or self-care (01) ==
LOC: WHH 10:25
PROVIDERS: ATTEND Podiatrist Foot & Ankle Surgery
DX: E11.621 Type 2 diabetes mellitus with foot ulcer (principal); L97.412 Non-pressure chronic ulcer of right heel and midfoot with fat layer exposed; E11.51 Type 2 diabetes mellitus with diabetic peripheral angiopathy without gangrene; L97.421 Non-pressure chronic ulcer of left heel and midfoot limited to breakdown of skin; E11.42 Type 2 diabetes mellitus with diabetic polyneuropathy; E11.22 Type 2 diabetes mellitus with diabetic chronic kidney disease; I13.0 Hypertensive heart and chronic kidney disease with heart failure and stage 1 through stage 4 chronic kidney disease, or unspecified chronic kidney disease; N18.4 Chronic kidney disease, stage 4 (severe); I50.32 Chronic diastolic (congestive) heart failure; I25.10 Atherosclerotic heart disease of native coronary artery without angina pectoris; M47.816 Spondylosis without myelopathy or radiculopathy, lumbar region; M51.36 Other intervertebral disc degeneration, lumbar region; M48.061 Spinal stenosis, lumbar region without neurogenic claudication; M19.90 Unspecified osteoarthritis, unspecified site; Z86.73 Personal history of transient ischemic attack (TIA), and cerebral infarction without residual deficits; Z79.899 Other long term (current) drug therapy
CPT/HCPCS: 11042; A6209; A4450

== ENCOUNTER → 2022-07-17 | Outpatient (CLI) | payer OTHER, MEDICARE ==
[~2022-07-17] MED LIST changes: -LIDOCAINE HCL 4% LTA SOL 4 ML VIAL TP ONE
== END | disposition home or self-care (01) ==
LOC: SHCH 13:42
PROVIDERS: ATTEND Internal Medicine Cardiovascular Disease
DX: I70.203 Unspecified atherosclerosis of native arteries of extremities, bilateral legs (principal); I65.23 Occlusion and stenosis of bilateral carotid arteries
CPT/HCPCS: 93880; 93925

== ENCOUNTER → 2022-07-23 | Outpatient (CLI) | payer OTHER, MEDICARE ==
[~2022-07-23] MED LIST changes: +LIDOCAINE HCL 4% LTA SOL 4 ML VIAL TP ONE
== END | disposition home or self-care (01) ==
LOC: WHH 09:49
PROVIDERS: ATTEND Podiatrist Foot & Ankle Surgery
DX: E11.621 Type 2 diabetes mellitus with foot ulcer (principal); L97.412 Non-pressure chronic ulcer of right heel and midfoot with fat layer exposed; E11.51 Type 2 diabetes mellitus with diabetic peripheral angiopathy without gangrene; L97.421 Non-pressure chronic ulcer of left heel and midfoot limited to breakdown of skin; E11.42 Type 2 diabetes mellitus with diabetic polyneuropathy; E11.22 Type 2 diabetes mellitus with diabetic chronic kidney disease; I13.0 Hypertensive heart and chronic kidney disease with heart failure and stage 1 through stage 4 chronic kidney disease, or unspecified chronic kidney disease; N18.4 Chronic kidney disease, stage 4 (severe); I50.32 Chronic diastolic (congestive) heart failure; I25.10 Atherosclerotic heart disease of native coronary artery without angina pectoris; M47.816 Spondylosis without myelopathy or radiculopathy, lumbar region; M51.36 Other intervertebral disc degeneration, lumbar region; M48.061 Spinal stenosis, lumbar region without neurogenic claudication; M19.90 Unspecified osteoarthritis, unspecified site; Z86.73 Personal history of transient ischemic attack (TIA), and cerebral infarction without residual deficits; Z79.899 Other long term (current) drug therapy
CPT/HCPCS: 11042; A6209

== ENCOUNTER → 2022-08-06 | Outpatient (CLI) | payer OTHER, MEDICARE ==
[~2022-08-06] MED LIST changes: -LIDOCAINE HCL 4% LTA SOL 4 ML VIAL TP ONE
== END | disposition home or self-care (01) ==
LOC: WHH 09:51
PROVIDERS: ATTEND Podiatrist Foot & Ankle Surgery
DX: E11.621 Type 2 diabetes mellitus with foot ulcer (principal); L97.412 Non-pressure chronic ulcer of right heel and midfoot with fat layer exposed; E11.51 Type 2 diabetes mellitus with diabetic peripheral angiopathy without gangrene; L97.421 Non-pressure chronic ulcer of left heel and midfoot limited to breakdown of skin; E11.42 Type 2 diabetes mellitus with diabetic polyneuropathy; E11.22 Type 2 diabetes mellitus with diabetic chronic kidney disease; I13.0 Hypertensive heart and chronic kidney disease with heart failure and stage 1 through stage 4 chronic kidney disease, or unspecified chronic kidney disease; N18.4 Chronic kidney disease, stage 4 (severe); I50.32 Chronic diastolic (congestive) heart failure; I25.10 Atherosclerotic heart disease of native coronary artery without angina pectoris; M47.816 Spondylosis without myelopathy or radiculopathy, lumbar region; M51.36 Other intervertebral disc degeneration, lumbar region; M48.061 Spinal stenosis, lumbar region without neurogenic claudication; M19.90 Unspecified osteoarthritis, unspecified site; Z86.73 Personal history of transient ischemic attack (TIA), and cerebral infarction without residual deficits; Z79.899 Other long term (current) drug therapy
CPT/HCPCS: G0463; A6209; A4450

== ENCOUNTER → 2022-08-20 | Outpatient (CLI) | payer OTHER, MEDICARE ==
[~2022-08-20] MED LIST changes: +LIDOCAINE HCL 4% LTA SOL 4 ML VIAL TP ONE
== END | disposition home or self-care (01) ==
LOC: WHH 10:58
PROVIDERS: ATTEND Podiatrist Foot & Ankle Surgery
DX: E11.621 Type 2 diabetes mellitus with foot ulcer (principal); L97.412 Non-pressure chronic ulcer of right heel and midfoot with fat layer exposed; E11.51 Type 2 diabetes mellitus with diabetic peripheral angiopathy without gangrene; L97.421 Non-pressure chronic ulcer of left heel and midfoot limited to breakdown of skin; E11.42 Type 2 diabetes mellitus with diabetic polyneuropathy; E11.22 Type 2 diabetes mellitus with diabetic chronic kidney disease; I13.0 Hypertensive heart and chronic kidney disease with heart failure and stage 1 through stage 4 chronic kidney disease, or unspecified chronic kidney disease; N18.4 Chronic kidney disease, stage 4 (severe); I50.32 Chronic diastolic (congestive) heart failure; I25.10 Atherosclerotic heart disease of native coronary artery without angina pectoris; M47.816 Spondylosis without myelopathy or radiculopathy, lumbar region; M51.36 Other intervertebral disc degeneration, lumbar region; M48.061 Spinal stenosis, lumbar region without neurogenic claudication; M19.90 Unspecified osteoarthritis, unspecified site; Z86.73 Personal history of transient ischemic attack (TIA), and cerebral infarction without residual deficits; Z79.899 Other long term (current) drug therapy
CPT/HCPCS: G0463; A6209

== ENCOUNTER → 2022-09-03 | Outpatient (CLI) | payer OTHER, MEDICARE ==
[~2022-09-03] MED LIST changes: -LIDOCAINE HCL 4% LTA SOL 4 ML VIAL TP ONE
== END | disposition home or self-care (01) ==
LOC: WHH 09:47
PROVIDERS: ATTEND Podiatrist Foot & Ankle Surgery
DX: E11.621 Type 2 diabetes mellitus with foot ulcer (principal); L97.412 Non-pressure chronic ulcer of right heel and midfoot with fat layer exposed; E11.51 Type 2 diabetes mellitus with diabetic peripheral angiopathy without gangrene; E11.42 Type 2 diabetes mellitus with diabetic polyneuropathy; E11.22 Type 2 diabetes mellitus with diabetic chronic kidney disease; I13.0 Hypertensive heart and chronic kidney disease with heart failure and stage 1 through stage 4 chronic kidney disease, or unspecified chronic kidney disease; N18.4 Chronic kidney disease, stage 4 (severe); I50.32 Chronic diastolic (congestive) heart failure; I25.10 Atherosclerotic heart disease of native coronary artery without angina pectoris; M47.816 Spondylosis without myelopathy or radiculopathy, lumbar region; M51.36 Other intervertebral disc degeneration, lumbar region; M48.061 Spinal stenosis, lumbar region without neurogenic claudication; M19.90 Unspecified osteoarthritis, unspecified site; Z86.73 Personal history of transient ischemic attack (TIA), and cerebral infarction without residual deficits; Z79.899 Other long term (current) drug therapy
CPT/HCPCS: 11042; A6207

== ENCOUNTER → 2022-09-08 | Outpatient (CLI) | payer OTHER, MEDICARE | END | disposition home or self-care (01) | LOC: SHCH 12:50 | PROVIDERS: ATTEND Internal Medicine Cardiovascular Disease | DX: I87.2 Venous insufficiency (chronic) (peripheral) (principal); I87.1 Compression of vein | CPT/HCPCS: 93970 ==

== ENCOUNTER → 2022-09-17 | Outpatient (CLI) | payer OTHER, MEDICARE ==
[~2022-09-17] MED LIST changes: +LIDOCAINE HCL 4% LTA SOL 4 ML VIAL TP ONE
== END | disposition home or self-care (01) ==
LOC: WHH 09:54
PROVIDERS: ATTEND Podiatrist Foot & Ankle Surgery
DX: E11.621 Type 2 diabetes mellitus with foot ulcer (principal); L97.412 Non-pressure chronic ulcer of right heel and midfoot with fat layer exposed; E11.51 Type 2 diabetes mellitus with diabetic peripheral angiopathy without gangrene; E11.42 Type 2 diabetes mellitus with diabetic polyneuropathy; E11.22 Type 2 diabetes mellitus with diabetic chronic kidney disease; I13.0 Hypertensive heart and chronic kidney disease with heart failure and stage 1 through stage 4 chronic kidney disease, or unspecified chronic kidney disease; N18.4 Chronic kidney disease, stage 4 (severe); I50.32 Chronic diastolic (congestive) heart failure; I25.10 Atherosclerotic heart disease of native coronary artery without angina pectoris; M47.816 Spondylosis without myelopathy or radiculopathy, lumbar region; M51.36 Other intervertebral disc degeneration, lumbar region; M48.061 Spinal stenosis, lumbar region without neurogenic claudication; M19.90 Unspecified osteoarthritis, unspecified site; Z86.73 Personal history of transient ischemic attack (TIA), and cerebral infarction without residual deficits; Z79.899 Other long term (current) drug therapy
CPT/HCPCS: 11042; A6207; A4450

== ENCOUNTER → 2022-10-01 | Outpatient (CLI) | payer OTHER, MEDICARE | END | disposition home or self-care (01) | LOC: WHH 10:08 | PROVIDERS: ATTEND Podiatrist Foot & Ankle Surgery | DX: E11.621 Type 2 diabetes mellitus with foot ulcer (principal); L97.412 Non-pressure chronic ulcer of right heel and midfoot with fat layer exposed; E11.51 Type 2 diabetes mellitus with diabetic peripheral angiopathy without gangrene; E11.42 Type 2 diabetes mellitus with diabetic polyneuropathy; E11.22 Type 2 diabetes mellitus with diabetic chronic kidney disease; I13.0 Hypertensive heart and chronic kidney disease with heart failure and stage 1 through stage 4 chronic kidney disease, or unspecified chronic kidney disease; N18.4 Chronic kidney disease, stage 4 (severe); I50.32 Chronic diastolic (congestive) heart failure; I25.10 Atherosclerotic heart disease of native coronary artery without angina pectoris; M47.816 Spondylosis without myelopathy or radiculopathy, lumbar region; M51.36 Other intervertebral disc degeneration, lumbar region; M48.061 Spinal stenosis, lumbar region without neurogenic claudication; M19.90 Unspecified osteoarthritis, unspecified site; Z86.73 Personal history of transient ischemic attack (TIA), and cerebral infarction without residual deficits; Z79.899 Other long term (current) drug therapy | CPT/HCPCS: G0463; A6250; A6207 ==

== ENCOUNTER → 2022-10-03 | Outpatient (CLI) | payer OTHER, MEDICARE ==
[~2022-10-03] MED LIST changes: -LIDOCAINE HCL 4% LTA SOL 4 ML VIAL TP ONE
[2022-10-03 12:58] LABS: CREATININE 1.5 mg/dL (0.5-1.5); POTASSIUM 4.3 mmol/L (3.5-5.1)
== END | disposition home or self-care (01) ==
LOC: LAB 11:27
PROVIDERS: ATTEND Internal Medicine Cardiovascular Disease
DX: I10 Essential (primary) hypertension (principal); I25.10 Atherosclerotic heart disease of native coronary artery without angina pectoris
CPT/HCPCS: 36415; 80048; 83880

== ENCOUNTER → 2022-10-22 | Outpatient (CLI) | payer OTHER, MEDICARE ==
[~2022-10-22] MED LIST changes: +LIDOCAINE HCL 4% LTA SOL 4 ML VIAL TP ONE
== END | disposition home or self-care (01) ==
LOC: WHH 09:52
PROVIDERS: ATTEND Podiatrist Foot & Ankle Surgery
DX: E11.621 Type 2 diabetes mellitus with foot ulcer (principal); L97.412 Non-pressure chronic ulcer of right heel and midfoot with fat layer exposed; S80.821A Blister (nonthermal), right lower leg, initial encounter; E11.51 Type 2 diabetes mellitus with diabetic peripheral angiopathy without gangrene; E11.42 Type 2 diabetes mellitus with diabetic polyneuropathy; E11.22 Type 2 diabetes mellitus with diabetic chronic kidney disease; I13.0 Hypertensive heart and chronic kidney disease with heart failure and stage 1 through stage 4 chronic kidney disease, or unspecified chronic kidney disease; N18.4 Chronic kidney disease, stage 4 (severe); I50.32 Chronic diastolic (congestive) heart failure; I25.10 Atherosclerotic heart disease of native coronary artery without angina pectoris; M47.816 Spondylosis without myelopathy or radiculopathy, lumbar region; M51.36 Other intervertebral disc degeneration, lumbar region; M48.061 Spinal stenosis, lumbar region without neurogenic claudication; M19.90 Unspecified osteoarthritis, unspecified site; Z86.73 Personal history of transient ischemic attack (TIA), and cerebral infarction without residual deficits; Z79.899 Other long term (current) drug therapy; X58.XXXA Exposure to other specified factors, initial encounter; Y93.89 Activity, other specified; Y92.89 Other specified places as the place of occurrence of the external cause; Y99.8 Other external cause status
CPT/HCPCS: 11042; A6207

== ENCOUNTER → 2022-11-05 | Outpatient (CLI) | payer OTHER, MEDICARE ==
[~2022-11-05] MED LIST changes: -LIDOCAINE HCL 4% LTA SOL 4 ML VIAL TP ONE
== END | disposition home or self-care (01) ==
LOC: WHH 10:23
PROVIDERS: ATTEND Podiatrist Foot & Ankle Surgery
DX: E11.621 Type 2 diabetes mellitus with foot ulcer (principal); L97.412 Non-pressure chronic ulcer of right heel and midfoot with fat layer exposed; S80.821D Blister (nonthermal), right lower leg, subsequent encounter; E11.51 Type 2 diabetes mellitus with diabetic peripheral angiopathy without gangrene; E11.42 Type 2 diabetes mellitus with diabetic polyneuropathy; E11.22 Type 2 diabetes mellitus with diabetic chronic kidney disease; I13.0 Hypertensive heart and chronic kidney disease with heart failure and stage 1 through stage 4 chronic kidney disease, or unspecified chronic kidney disease; N18.4 Chronic kidney disease, stage 4 (severe); I50.32 Chronic diastolic (congestive) heart failure; I25.10 Atherosclerotic heart disease of native coronary artery without angina pectoris; M47.816 Spondylosis without myelopathy or radiculopathy, lumbar region; M51.36 Other intervertebral disc degeneration, lumbar region; M48.061 Spinal stenosis, lumbar region without neurogenic claudication; M19.90 Unspecified osteoarthritis, unspecified site; Z86.73 Personal history of transient ischemic attack (TIA), and cerebral infarction without residual deficits; Z79.899 Other long term (current) drug therapy; X58.XXXD Exposure to other specified factors, subsequent encounter
CPT/HCPCS: 11042; A6207; A4450

== ENCOUNTER → 2022-11-19 | Outpatient (CLI) | payer OTHER, MEDICARE ==
[~2022-11-19] MED LIST changes: +LIDOCAINE HCL 4% LTA SOL 4 ML VIAL TP ONE
== END | disposition home or self-care (01) ==
LOC: WHH 09:48
PROVIDERS: ATTEND Podiatrist Foot & Ankle Surgery
DX: E11.621 Type 2 diabetes mellitus with foot ulcer (principal); L97.412 Non-pressure chronic ulcer of right heel and midfoot with fat layer exposed; S80.821D Blister (nonthermal), right lower leg, subsequent encounter; E11.51 Type 2 diabetes mellitus with diabetic peripheral angiopathy without gangrene; E11.42 Type 2 diabetes mellitus with diabetic polyneuropathy; E11.22 Type 2 diabetes mellitus with diabetic chronic kidney disease; I13.0 Hypertensive heart and chronic kidney disease with heart failure and stage 1 through stage 4 chronic kidney disease, or unspecified chronic kidney disease; N18.4 Chronic kidney disease, stage 4 (severe); I50.32 Chronic diastolic (congestive) heart failure; I25.10 Atherosclerotic heart disease of native coronary artery without angina pectoris; M47.816 Spondylosis without myelopathy or radiculopathy, lumbar region; M51.36 Other intervertebral disc degeneration, lumbar region; M48.061 Spinal stenosis, lumbar region without neurogenic claudication; M19.90 Unspecified osteoarthritis, unspecified site; Z86.73 Personal history of transient ischemic attack (TIA), and cerebral infarction without residual deficits; Z79.899 Other long term (current) drug therapy; X58.XXXD Exposure to other specified factors, subsequent encounter
CPT/HCPCS: G0463; A6207

== ENCOUNTER → 2023-01-21 | Outpatient (CLI) | payer OTHER, MEDICARE ==
[~2023-01-21] MED LIST changes: -LIDOCAINE HCL 4% LTA SOL 4 ML VIAL TP ONE
== END | disposition home or self-care (01) ==
LOC: WHH 09:52
PROVIDERS: ATTEND Podiatrist Foot & Ankle Surgery
DX: B35.1 Tinea unguium (principal); E11.622 Type 2 diabetes mellitus with other skin ulcer; I70.233 Atherosclerosis of native arteries of right leg with ulceration of ankle; L97.311 Non-pressure chronic ulcer of right ankle limited to breakdown of skin; I70.202 Unspecified atherosclerosis of native arteries of extremities, left leg; L60.2 Onychogryphosis; I25.10 Atherosclerotic heart disease of native coronary artery without angina pectoris; E11.51 Type 2 diabetes mellitus with diabetic peripheral angiopathy without gangrene; E11.42 Type 2 diabetes mellitus with diabetic polyneuropathy; E11.22 Type 2 diabetes mellitus with diabetic chronic kidney disease; I13.0 Hypertensive heart and chronic kidney disease with heart failure and stage 1 through stage 4 chronic kidney disease, or unspecified chronic kidney disease; N18.4 Chronic kidney disease, stage 4 (severe); I50.32 Chronic diastolic (congestive) heart failure; M19.90 Unspecified osteoarthritis, unspecified site; M51.36 Other intervertebral disc degeneration, lumbar region; R60.0 Localized edema; Z86.73 Personal history of transient ischemic attack (TIA), and cerebral infarction without residual deficits; Z79.899 Other long term (current) drug therapy; X58.XXXD Exposure to other specified factors, subsequent encounter
CPT/HCPCS: 11721

== ENCOUNTER → 2023-02-04 | Outpatient (CLI) | payer OTHER, MEDICARE ==
[~2023-02-04] MED LIST changes: +IODOSORB GEL 40GM TP ONE; +LIDOCAINE HCL 4% LTA SOL 4 ML VIAL TP ONE
== END | disposition home or self-care (01) ==
LOC: WHH 09:50
PROVIDERS: ATTEND Podiatrist Foot & Ankle Surgery
DX: B35.1 Tinea unguium (principal); E11.622 Type 2 diabetes mellitus with other skin ulcer; I70.233 Atherosclerosis of native arteries of right leg with ulceration of ankle; L97.311 Non-pressure chronic ulcer of right ankle limited to breakdown of skin; I70.202 Unspecified atherosclerosis of native arteries of extremities, left leg; L60.2 Onychogryphosis; I25.10 Atherosclerotic heart disease of native coronary artery without angina pectoris; E11.51 Type 2 diabetes mellitus with diabetic peripheral angiopathy without gangrene; E11.42 Type 2 diabetes mellitus with diabetic polyneuropathy; E11.22 Type 2 diabetes mellitus with diabetic chronic kidney disease; I13.0 Hypertensive heart and chronic kidney disease with heart failure and stage 1 through stage 4 chronic kidney disease, or unspecified chronic kidney disease; N18.4 Chronic kidney disease, stage 4 (severe); I50.32 Chronic diastolic (congestive) heart failure; J44.9 Chronic obstructive pulmonary disease, unspecified; M19.90 Unspecified osteoarthritis, unspecified site; M51.36 Other intervertebral disc degeneration, lumbar region; R60.0 Localized edema; Z86.73 Personal history of transient ischemic attack (TIA), and cerebral infarction without residual deficits; Z79.899 Other long term (current) drug therapy; X58.XXXD Exposure to other specified factors, subsequent encounter
CPT/HCPCS: 87070; 87077; 87186; G0463; A4450

== ENCOUNTER → 2023-02-11 | Outpatient (CLI) | payer OTHER, MEDICARE | END | disposition home or self-care (01) | LOC: WHH 09:48 | PROVIDERS: ATTEND Podiatrist Foot & Ankle Surgery | DX: B35.1 Tinea unguium (principal); E11.622 Type 2 diabetes mellitus with other skin ulcer; I70.233 Atherosclerosis of native arteries of right leg with ulceration of ankle; L97.311 Non-pressure chronic ulcer of right ankle limited to breakdown of skin; I70.202 Unspecified atherosclerosis of native arteries of extremities, left leg; E11.621 Type 2 diabetes mellitus with foot ulcer; L97.411 Non-pressure chronic ulcer of right heel and midfoot limited to breakdown of skin; L60.2 Onychogryphosis; I25.10 Atherosclerotic heart disease of native coronary artery without angina pectoris; E11.51 Type 2 diabetes mellitus with diabetic peripheral angiopathy without gangrene; E11.42 Type 2 diabetes mellitus with diabetic polyneuropathy; E11.22 Type 2 diabetes mellitus with diabetic chronic kidney disease; I13.0 Hypertensive heart and chronic kidney disease with heart failure and stage 1 through stage 4 chronic kidney disease, or unspecified chronic kidney disease; N18.4 Chronic kidney disease, stage 4 (severe); I50.32 Chronic diastolic (congestive) heart failure; J44.9 Chronic obstructive pulmonary disease, unspecified; M19.90 Unspecified osteoarthritis, unspecified site; M51.36 Other intervertebral disc degeneration, lumbar region; R60.0 Localized edema; Z86.73 Personal history of transient ischemic attack (TIA), and cerebral infarction without residual deficits; Z79.899 Other long term (current) drug therapy; X58.XXXD Exposure to other specified factors, subsequent encounter | CPT/HCPCS: G0463 ==

== ENCOUNTER → 2023-02-18 | Outpatient (CLI) | payer OTHER, MEDICARE ==
[~2023-02-18] MED LIST changes: -IODOSORB GEL 40GM TP ONE; -LIDOCAINE HCL 4% LTA SOL 4 ML VIAL TP ONE
== END | disposition home or self-care (01) ==
LOC: WHH 10:07
PROVIDERS: ATTEND Podiatrist Foot & Ankle Surgery
DX: B35.1 Tinea unguium (principal); E11.622 Type 2 diabetes mellitus with other skin ulcer; I70.233 Atherosclerosis of native arteries of right leg with ulceration of ankle; L97.311 Non-pressure chronic ulcer of right ankle limited to breakdown of skin; I70.202 Unspecified atherosclerosis of native arteries of extremities, left leg; E11.621 Type 2 diabetes mellitus with foot ulcer; L97.411 Non-pressure chronic ulcer of right heel and midfoot limited to breakdown of skin; L60.2 Onychogryphosis; I25.10 Atherosclerotic heart disease of native coronary artery without angina pectoris; E11.51 Type 2 diabetes mellitus with diabetic peripheral angiopathy without gangrene; E11.42 Type 2 diabetes mellitus with diabetic polyneuropathy; E11.22 Type 2 diabetes mellitus with diabetic chronic kidney disease; I13.0 Hypertensive heart and chronic kidney disease with heart failure and stage 1 through stage 4 chronic kidney disease, or unspecified chronic kidney disease; N18.4 Chronic kidney disease, stage 4 (severe); I50.32 Chronic diastolic (congestive) heart failure; J44.9 Chronic obstructive pulmonary disease, unspecified; M19.90 Unspecified osteoarthritis, unspecified site; M51.36 Other intervertebral disc degeneration, lumbar region; R60.0 Localized edema; Z86.73 Personal history of transient ischemic attack (TIA), and cerebral infarction without residual deficits; Z79.899 Other long term (current) drug therapy; X58.XXXD Exposure to other specified factors, subsequent encounter
CPT/HCPCS: G0463

== ENCOUNTER → 2023-04-01 | Outpatient (CLI) | payer OTHER, MEDICARE ==
[~2023-04-01] MED LIST changes: +LIDOCAINE HCL 4% LTA SOL 4 ML VIAL TP ONE
== END | disposition home or self-care (01) ==
LOC: WHH 09:41
PROVIDERS: ATTEND Podiatrist Foot & Ankle Surgery
DX: E11.622 Type 2 diabetes mellitus with other skin ulcer (principal); I70.233 Atherosclerosis of native arteries of right leg with ulceration of ankle; L97.311 Non-pressure chronic ulcer of right ankle limited to breakdown of skin; E11.621 Type 2 diabetes mellitus with foot ulcer; L97.411 Non-pressure chronic ulcer of right heel and midfoot limited to breakdown of skin; I70.202 Unspecified atherosclerosis of native arteries of extremities, left leg; B35.1 Tinea unguium; L60.2 Onychogryphosis; I25.10 Atherosclerotic heart disease of native coronary artery without angina pectoris; E11.51 Type 2 diabetes mellitus with diabetic peripheral angiopathy without gangrene; E11.22 Type 2 diabetes mellitus with diabetic chronic kidney disease; N18.4 Chronic kidney disease, stage 4 (severe); I50.32 Chronic diastolic (congestive) heart failure; J44.9 Chronic obstructive pulmonary disease, unspecified; M19.90 Unspecified osteoarthritis, unspecified site; M51.36 Other intervertebral disc degeneration, lumbar region; R60.0 Localized edema; Z86.73 Personal history of transient ischemic attack (TIA), and cerebral infarction without residual deficits; Z79.899 Other long term (current) drug therapy
CPT/HCPCS: 11043; A6248; A4450

== ENCOUNTER → 2023-04-08 | Outpatient (CLI) | payer OTHER, MEDICARE | END | disposition home or self-care (01) | LOC: WHH 10:25 | PROVIDERS: ATTEND Podiatrist Foot & Ankle Surgery | DX: E11.622 Type 2 diabetes mellitus with other skin ulcer (principal); I70.233 Atherosclerosis of native arteries of right leg with ulceration of ankle; L97.311 Non-pressure chronic ulcer of right ankle limited to breakdown of skin; E11.621 Type 2 diabetes mellitus with foot ulcer; L97.411 Non-pressure chronic ulcer of right heel and midfoot limited to breakdown of skin; I70.202 Unspecified atherosclerosis of native arteries of extremities, left leg; B35.1 Tinea unguium; L60.2 Onychogryphosis; I25.10 Atherosclerotic heart disease of native coronary artery without angina pectoris; E11.51 Type 2 diabetes mellitus with diabetic peripheral angiopathy without gangrene; E11.22 Type 2 diabetes mellitus with diabetic chronic kidney disease; N18.4 Chronic kidney disease, stage 4 (severe); I50.32 Chronic diastolic (congestive) heart failure; J44.9 Chronic obstructive pulmonary disease, unspecified; M19.90 Unspecified osteoarthritis, unspecified site; M51.36 Other intervertebral disc degeneration, lumbar region; R60.0 Localized edema; Z86.73 Personal history of transient ischemic attack (TIA), and cerebral infarction without residual deficits; Z79.899 Other long term (current) drug therapy | CPT/HCPCS: G0463 ==

== ENCOUNTER → 2023-04-22 | Outpatient (CLI) | payer OTHER, MEDICARE | END | disposition home or self-care (01) | LOC: WHH 10:09 | PROVIDERS: ATTEND Podiatrist Foot & Ankle Surgery | DX: E11.622 Type 2 diabetes mellitus with other skin ulcer (principal); I70.233 Atherosclerosis of native arteries of right leg with ulceration of ankle; L97.311 Non-pressure chronic ulcer of right ankle limited to breakdown of skin; E11.621 Type 2 diabetes mellitus with foot ulcer; L97.411 Non-pressure chronic ulcer of right heel and midfoot limited to breakdown of skin; I70.202 Unspecified atherosclerosis of native arteries of extremities, left leg; B35.1 Tinea unguium; L60.2 Onychogryphosis; I25.10 Atherosclerotic heart disease of native coronary artery without angina pectoris; E11.51 Type 2 diabetes mellitus with diabetic peripheral angiopathy without gangrene; E11.22 Type 2 diabetes mellitus with diabetic chronic kidney disease; N18.4 Chronic kidney disease, stage 4 (severe); I50.32 Chronic diastolic (congestive) heart failure; J44.9 Chronic obstructive pulmonary disease, unspecified; M19.90 Unspecified osteoarthritis, unspecified site; M51.36 Other intervertebral disc degeneration, lumbar region; R60.0 Localized edema; Z86.73 Personal history of transient ischemic attack (TIA), and cerebral infarction without residual deficits; Z79.899 Other long term (current) drug therapy | CPT/HCPCS: 11042 ==

== ENCOUNTER → 2023-04-29 | Outpatient (CLI) | payer OTHER, MEDICARE ==
[~2023-04-29] MED LIST changes: -LIDOCAINE HCL 4% LTA SOL 4 ML VIAL TP ONE
== END | disposition home or self-care (01) ==
LOC: WHH 10:00
PROVIDERS: ATTEND Podiatrist Foot & Ankle Surgery
DX: E11.622 Type 2 diabetes mellitus with other skin ulcer (principal); I70.233 Atherosclerosis of native arteries of right leg with ulceration of ankle; L97.311 Non-pressure chronic ulcer of right ankle limited to breakdown of skin; E11.621 Type 2 diabetes mellitus with foot ulcer; L97.411 Non-pressure chronic ulcer of right heel and midfoot limited to breakdown of skin; I70.202 Unspecified atherosclerosis of native arteries of extremities, left leg; B35.1 Tinea unguium; L60.2 Onychogryphosis; I25.10 Atherosclerotic heart disease of native coronary artery without angina pectoris; E11.51 Type 2 diabetes mellitus with diabetic peripheral angiopathy without gangrene; E11.22 Type 2 diabetes mellitus with diabetic chronic kidney disease; N18.4 Chronic kidney disease, stage 4 (severe); I50.32 Chronic diastolic (congestive) heart failure; J44.9 Chronic obstructive pulmonary disease, unspecified; M19.90 Unspecified osteoarthritis, unspecified site; M51.36 Other intervertebral disc degeneration, lumbar region; R60.0 Localized edema; Z86.73 Personal history of transient ischemic attack (TIA), and cerebral infarction without residual deficits; Z79.899 Other long term (current) drug therapy
CPT/HCPCS: 11042; A6209

== ENCOUNTER → 2023-07-29 | Outpatient (CLI) | payer OTHER, MEDICARE ==
[~2023-07-29] MED LIST changes: +ACET-2247 PO; -AEC81 PO; +ALBU90AE IH; -AMLO5TAB4 PO; -CLON0.1T PO; +FERR-82 PO; +GABA-529 PO; -HYDR-4153 PO; +HYDR25TA67 PO; -INSU100V SQ; +INSU100V3 IJ; +LEVO-70 PO; +LIDOCAINE HCL 4% LTA SOL 4 ML VIAL TP ONE; +PANT40GR PO; -TIZA-194 PO
== END | disposition home or self-care (01) ==
LOC: WHH 09:47
PROVIDERS: ATTEND Podiatrist Foot & Ankle Surgery
DX: E11.622 Type 2 diabetes mellitus with other skin ulcer (principal); I70.203 Unspecified atherosclerosis of native arteries of extremities, bilateral legs; L97.311 Non-pressure chronic ulcer of right ankle limited to breakdown of skin; E11.42 Type 2 diabetes mellitus with diabetic polyneuropathy; E11.22 Type 2 diabetes mellitus with diabetic chronic kidney disease; I13.0 Hypertensive heart and chronic kidney disease with heart failure and stage 1 through stage 4 chronic kidney disease, or unspecified chronic kidney disease; N18.4 Chronic kidney disease, stage 4 (severe); I50.32 Chronic diastolic (congestive) heart failure; E11.65 Type 2 diabetes mellitus with hyperglycemia; I25.2 Old myocardial infarction; E78.00 Pure hypercholesterolemia, unspecified; I25.10 Atherosclerotic heart disease of native coronary artery without angina pectoris; M19.90 Unspecified osteoarthritis, unspecified site; E66.9 Obesity, unspecified; F32.A Depression, unspecified; Z86.73 Personal history of transient ischemic attack (TIA), and cerebral infarction without residual deficits; Z68.27 Body mass index [BMI] 27.0-27.9, adult; Z79.4 Long term (current) use of insulin; Z79.82 Long term (current) use of aspirin; Z79.899 Other long term (current) drug therapy
CPT/HCPCS: 11042; A4450

== ENCOUNTER → 2023-08-12 | Outpatient (CLI) | payer OTHER, MEDICARE | END | disposition home or self-care (01) | LOC: WHH 09:41 | PROVIDERS: ATTEND Podiatrist Foot & Ankle Surgery | DX: E11.622 Type 2 diabetes mellitus with other skin ulcer (principal); I70.202 Unspecified atherosclerosis of native arteries of extremities, left leg; I70.233 Atherosclerosis of native arteries of right leg with ulceration of ankle; L97.312 Non-pressure chronic ulcer of right ankle with fat layer exposed; E11.42 Type 2 diabetes mellitus with diabetic polyneuropathy; E11.51 Type 2 diabetes mellitus with diabetic peripheral angiopathy without gangrene; E11.65 Type 2 diabetes mellitus with hyperglycemia; E11.22 Type 2 diabetes mellitus with diabetic chronic kidney disease; I13.0 Hypertensive heart and chronic kidney disease with heart failure and stage 1 through stage 4 chronic kidney disease, or unspecified chronic kidney disease; N18.4 Chronic kidney disease, stage 4 (severe); I50.32 Chronic diastolic (congestive) heart failure; J44.9 Chronic obstructive pulmonary disease, unspecified; I25.2 Old myocardial infarction; E78.00 Pure hypercholesterolemia, unspecified; I25.10 Atherosclerotic heart disease of native coronary artery without angina pectoris; E66.9 Obesity, unspecified; M19.90 Unspecified osteoarthritis, unspecified site; F32.A Depression, unspecified; Z86.73 Personal history of transient ischemic attack (TIA), and cerebral infarction without residual deficits; Z68.27 Body mass index [BMI] 27.0-27.9, adult; Z79.4 Long term (current) use of insulin; Z79.82 Long term (current) use of aspirin; Z79.899 Other long term (current) drug therapy | CPT/HCPCS: 11042; A4450 ==

== ENCOUNTER → 2023-08-19 | Outpatient (CLI) | payer OTHER, MEDICARE | END | disposition home or self-care (01) | LOC: WHH 09:50 | PROVIDERS: ATTEND Podiatrist Foot & Ankle Surgery | DX: E11.622 Type 2 diabetes mellitus with other skin ulcer (principal); I70.233 Atherosclerosis of native arteries of right leg with ulceration of ankle; L97.312 Non-pressure chronic ulcer of right ankle with fat layer exposed; I70.202 Unspecified atherosclerosis of native arteries of extremities, left leg; E11.42 Type 2 diabetes mellitus with diabetic polyneuropathy; E11.51 Type 2 diabetes mellitus with diabetic peripheral angiopathy without gangrene; E11.22 Type 2 diabetes mellitus with diabetic chronic kidney disease; I13.0 Hypertensive heart and chronic kidney disease with heart failure and stage 1 through stage 4 chronic kidney disease, or unspecified chronic kidney disease; N18.4 Chronic kidney disease, stage 4 (severe); I50.32 Chronic diastolic (congestive) heart failure; J44.9 Chronic obstructive pulmonary disease, unspecified; I25.2 Old myocardial infarction; E78.2 Mixed hyperlipidemia; I25.10 Atherosclerotic heart disease of native coronary artery without angina pectoris; M19.90 Unspecified osteoarthritis, unspecified site; F32.1 Major depressive disorder, single episode, moderate; E66.9 Obesity, unspecified; Z68.27 Body mass index [BMI] 27.0-27.9, adult; Z86.73 Personal history of transient ischemic attack (TIA), and cerebral infarction without residual deficits; Z79.4 Long term (current) use of insulin; Z79.82 Long term (current) use of aspirin; Z79.899 Other long term (current) drug therapy | CPT/HCPCS: 15271; Q4121; A6196 ==

== ENCOUNTER → 2023-08-26 | Outpatient (CLI) | payer OTHER, MEDICARE ==
[~2023-08-26] MED LIST changes: -LIDOCAINE HCL 4% LTA SOL 4 ML VIAL TP ONE
== END | disposition home or self-care (01) ==
LOC: WHH 10:29
PROVIDERS: ATTEND Podiatrist Foot & Ankle Surgery
DX: E11.622 Type 2 diabetes mellitus with other skin ulcer (principal); I70.233 Atherosclerosis of native arteries of right leg with ulceration of ankle; L97.312 Non-pressure chronic ulcer of right ankle with fat layer exposed; I70.202 Unspecified atherosclerosis of native arteries of extremities, left leg; E11.42 Type 2 diabetes mellitus with diabetic polyneuropathy; E11.51 Type 2 diabetes mellitus with diabetic peripheral angiopathy without gangrene; E11.22 Type 2 diabetes mellitus with diabetic chronic kidney disease; I13.0 Hypertensive heart and chronic kidney disease with heart failure and stage 1 through stage 4 chronic kidney disease, or unspecified chronic kidney disease; N18.4 Chronic kidney disease, stage 4 (severe); I50.32 Chronic diastolic (congestive) heart failure; J44.9 Chronic obstructive pulmonary disease, unspecified; I25.2 Old myocardial infarction; E78.2 Mixed hyperlipidemia; I25.10 Atherosclerotic heart disease of native coronary artery without angina pectoris; M19.90 Unspecified osteoarthritis, unspecified site; F32.1 Major depressive disorder, single episode, moderate; E66.9 Obesity, unspecified; Z68.27 Body mass index [BMI] 27.0-27.9, adult; Z86.73 Personal history of transient ischemic attack (TIA), and cerebral infarction without residual deficits; Z79.4 Long term (current) use of insulin; Z79.82 Long term (current) use of aspirin; Z79.899 Other long term (current) drug therapy
CPT/HCPCS: 15271; Q4121; A6207; A6196

== ENCOUNTER → 2023-09-02 | Outpatient (CLI) | payer OTHER, MEDICARE | END | disposition home or self-care (01) | LOC: WHH 10:42 | PROVIDERS: ATTEND Podiatrist Foot & Ankle Surgery | DX: E11.622 Type 2 diabetes mellitus with other skin ulcer (principal); I70.233 Atherosclerosis of native arteries of right leg with ulceration of ankle; L97.312 Non-pressure chronic ulcer of right ankle with fat layer exposed; I70.202 Unspecified atherosclerosis of native arteries of extremities, left leg; E11.42 Type 2 diabetes mellitus with diabetic polyneuropathy; E11.51 Type 2 diabetes mellitus with diabetic peripheral angiopathy without gangrene; E11.22 Type 2 diabetes mellitus with diabetic chronic kidney disease; I13.0 Hypertensive heart and chronic kidney disease with heart failure and stage 1 through stage 4 chronic kidney disease, or unspecified chronic kidney disease; N18.4 Chronic kidney disease, stage 4 (severe); I50.32 Chronic diastolic (congestive) heart failure; J44.9 Chronic obstructive pulmonary disease, unspecified; I25.2 Old myocardial infarction; E78.2 Mixed hyperlipidemia; I25.10 Atherosclerotic heart disease of native coronary artery without angina pectoris; M19.90 Unspecified osteoarthritis, unspecified site; F32.1 Major depressive disorder, single episode, moderate; E66.9 Obesity, unspecified; Z68.27 Body mass index [BMI] 27.0-27.9, adult; Z86.73 Personal history of transient ischemic attack (TIA), and cerebral infarction without residual deficits; Z79.4 Long term (current) use of insulin; Z79.82 Long term (current) use of aspirin; Z79.899 Other long term (current) drug therapy | CPT/HCPCS: 15271; Q4121; A6207; A6196; A4450 ==

== ENCOUNTER → 2023-09-09 | Outpatient (CLI) | payer OTHER, MEDICARE | END | disposition home or self-care (01) | LOC: WHH 10:45 | PROVIDERS: ATTEND Podiatrist Foot & Ankle Surgery | DX: E11.622 Type 2 diabetes mellitus with other skin ulcer (principal); I70.233 Atherosclerosis of native arteries of right leg with ulceration of ankle; L97.312 Non-pressure chronic ulcer of right ankle with fat layer exposed; I70.202 Unspecified atherosclerosis of native arteries of extremities, left leg; E11.42 Type 2 diabetes mellitus with diabetic polyneuropathy; E11.51 Type 2 diabetes mellitus with diabetic peripheral angiopathy without gangrene; E11.22 Type 2 diabetes mellitus with diabetic chronic kidney disease; I13.0 Hypertensive heart and chronic kidney disease with heart failure and stage 1 through stage 4 chronic kidney disease, or unspecified chronic kidney disease; N18.4 Chronic kidney disease, stage 4 (severe); I50.32 Chronic diastolic (congestive) heart failure; J44.9 Chronic obstructive pulmonary disease, unspecified; E78.2 Mixed hyperlipidemia; E66.9 Obesity, unspecified; I25.2 Old myocardial infarction; I25.10 Atherosclerotic heart disease of native coronary artery without angina pectoris; M19.90 Unspecified osteoarthritis, unspecified site; F32.A Depression, unspecified; F32.1 Major depressive disorder, single episode, moderate; Z68.27 Body mass index [BMI] 27.0-27.9, adult; Z86.73 Personal history of transient ischemic attack (TIA), and cerebral infarction without residual deficits; Z79.4 Long term (current) use of insulin; Z79.82 Long term (current) use of aspirin; Z79.899 Other long term (current) drug therapy | CPT/HCPCS: 15271; Q4121; A6207; A6196 ==

== ENCOUNTER → 2023-09-16 | Outpatient (CLI) | payer OTHER, MEDICARE ==
[~2023-09-16] MED LIST changes: +LIDOCAINE HCL 4% LTA SOL 4 ML VIAL TP ONE
== END | disposition home or self-care (01) ==
LOC: WHH 10:42
PROVIDERS: ATTEND Podiatrist Foot & Ankle Surgery
DX: E11.622 Type 2 diabetes mellitus with other skin ulcer (principal); I70.233 Atherosclerosis of native arteries of right leg with ulceration of ankle; I70.202 Unspecified atherosclerosis of native arteries of extremities, left leg; L97.312 Non-pressure chronic ulcer of right ankle with fat layer exposed; E11.42 Type 2 diabetes mellitus with diabetic polyneuropathy; E11.51 Type 2 diabetes mellitus with diabetic peripheral angiopathy without gangrene; E11.22 Type 2 diabetes mellitus with diabetic chronic kidney disease; I13.0 Hypertensive heart and chronic kidney disease with heart failure and stage 1 through stage 4 chronic kidney disease, or unspecified chronic kidney disease; N18.4 Chronic kidney disease, stage 4 (severe); I50.32 Chronic diastolic (congestive) heart failure; J44.9 Chronic obstructive pulmonary disease, unspecified; E78.2 Mixed hyperlipidemia; E66.9 Obesity, unspecified; I25.2 Old myocardial infarction; I25.10 Atherosclerotic heart disease of native coronary artery without angina pectoris; M19.90 Unspecified osteoarthritis, unspecified site; F32.A Depression, unspecified; F32.1 Major depressive disorder, single episode, moderate; Z68.27 Body mass index [BMI] 27.0-27.9, adult; Z86.73 Personal history of transient ischemic attack (TIA), and cerebral infarction without residual deficits; Z79.4 Long term (current) use of insulin; Z79.82 Long term (current) use of aspirin; Z79.899 Other long term (current) drug therapy
CPT/HCPCS: 15271; Q4121; A6207; A6196

== ENCOUNTER → 2023-09-16 | Outpatient (CLI) | payer OTHER, MEDICARE ==
[~2023-09-16] MED LIST changes: -LIDOCAINE HCL 4% LTA SOL 4 ML VIAL TP ONE
== END | disposition home or self-care (01) ==
LOC: RAH 14:49
PROVIDERS: ATTEND Internal Medicine
DX: M48.56XA Collapsed vertebra, not elsewhere classified, lumbar region, initial encounter for fracture (principal); M51.26 Other intervertebral disc displacement, lumbar region; M48.061 Spinal stenosis, lumbar region without neurogenic claudication
CPT/HCPCS: 72148

== ENCOUNTER → 2023-09-23 | Outpatient (CLI) | payer OTHER, MEDICARE ==
[~2023-09-23] MED LIST changes: +LIDOCAINE HCL 4% LTA SOL 4 ML VIAL TP ONE
== END | disposition home or self-care (01) ==
LOC: WHH 10:46
PROVIDERS: ATTEND Podiatrist Foot & Ankle Surgery
DX: E11.622 Type 2 diabetes mellitus with other skin ulcer (principal); I70.233 Atherosclerosis of native arteries of right leg with ulceration of ankle; I70.202 Unspecified atherosclerosis of native arteries of extremities, left leg; L97.312 Non-pressure chronic ulcer of right ankle with fat layer exposed; E11.42 Type 2 diabetes mellitus with diabetic polyneuropathy; E11.51 Type 2 diabetes mellitus with diabetic peripheral angiopathy without gangrene; E11.22 Type 2 diabetes mellitus with diabetic chronic kidney disease; I13.0 Hypertensive heart and chronic kidney disease with heart failure and stage 1 through stage 4 chronic kidney disease, or unspecified chronic kidney disease; N18.4 Chronic kidney disease, stage 4 (severe); I50.32 Chronic diastolic (congestive) heart failure; J44.9 Chronic obstructive pulmonary disease, unspecified; E78.2 Mixed hyperlipidemia; E66.9 Obesity, unspecified; I25.2 Old myocardial infarction; I25.10 Atherosclerotic heart disease of native coronary artery without angina pectoris; M19.90 Unspecified osteoarthritis, unspecified site; F32.A Depression, unspecified; F32.1 Major depressive disorder, single episode, moderate; Z68.27 Body mass index [BMI] 27.0-27.9, adult; Z86.73 Personal history of transient ischemic attack (TIA), and cerebral infarction without residual deficits; Z79.4 Long term (current) use of insulin; Z79.82 Long term (current) use of aspirin; Z79.899 Other long term (current) drug therapy
CPT/HCPCS: 15271; Q4121; A6207; A6196

== ENCOUNTER → 2023-09-30 | Outpatient (CLI) | payer OTHER, MEDICARE | END | disposition home or self-care (01) | LOC: WHH 10:00 | PROVIDERS: ATTEND Podiatrist Foot & Ankle Surgery | DX: E11.622 Type 2 diabetes mellitus with other skin ulcer (principal); I70.233 Atherosclerosis of native arteries of right leg with ulceration of ankle; I70.202 Unspecified atherosclerosis of native arteries of extremities, left leg; L97.312 Non-pressure chronic ulcer of right ankle with fat layer exposed; E11.42 Type 2 diabetes mellitus with diabetic polyneuropathy; E11.51 Type 2 diabetes mellitus with diabetic peripheral angiopathy without gangrene; E11.22 Type 2 diabetes mellitus with diabetic chronic kidney disease; I13.0 Hypertensive heart and chronic kidney disease with heart failure and stage 1 through stage 4 chronic kidney disease, or unspecified chronic kidney disease; N18.4 Chronic kidney disease, stage 4 (severe); I50.32 Chronic diastolic (congestive) heart failure; J44.9 Chronic obstructive pulmonary disease, unspecified; E78.2 Mixed hyperlipidemia; E66.9 Obesity, unspecified; I25.2 Old myocardial infarction; I25.10 Atherosclerotic heart disease of native coronary artery without angina pectoris; M19.90 Unspecified osteoarthritis, unspecified site; F32.A Depression, unspecified; F32.1 Major depressive disorder, single episode, moderate; Z68.27 Body mass index [BMI] 27.0-27.9, adult; Z86.73 Personal history of transient ischemic attack (TIA), and cerebral infarction without residual deficits; Z79.4 Long term (current) use of insulin; Z79.82 Long term (current) use of aspirin; Z79.899 Other long term (current) drug therapy | CPT/HCPCS: 15271; A6209; Q4121; A4450; A6260 ==

== ENCOUNTER → 2023-10-07 | Outpatient (CLI) | payer OTHER, MEDICARE ==
[~2023-10-07] MED LIST changes: -LIDOCAINE HCL 4% LTA SOL 4 ML VIAL TP ONE
== END | disposition home or self-care (01) ==
LOC: WHH 09:32
PROVIDERS: ATTEND Podiatrist Foot & Ankle Surgery
DX: E11.622 Type 2 diabetes mellitus with other skin ulcer (principal); I70.233 Atherosclerosis of native arteries of right leg with ulceration of ankle; L97.311 Non-pressure chronic ulcer of right ankle limited to breakdown of skin; I70.202 Unspecified atherosclerosis of native arteries of extremities, left leg; E11.42 Type 2 diabetes mellitus with diabetic polyneuropathy; E11.51 Type 2 diabetes mellitus with diabetic peripheral angiopathy without gangrene; E11.22 Type 2 diabetes mellitus with diabetic chronic kidney disease; I13.0 Hypertensive heart and chronic kidney disease with heart failure and stage 1 through stage 4 chronic kidney disease, or unspecified chronic kidney disease; N18.4 Chronic kidney disease, stage 4 (severe); I50.22 Chronic systolic (congestive) heart failure; J44.9 Chronic obstructive pulmonary disease, unspecified; E78.2 Mixed hyperlipidemia; E66.9 Obesity, unspecified; I25.2 Old myocardial infarction; I25.10 Atherosclerotic heart disease of native coronary artery without angina pectoris; M19.90 Unspecified osteoarthritis, unspecified site; F32.A Depression, unspecified; Z86.73 Personal history of transient ischemic attack (TIA), and cerebral infarction without residual deficits; Z68.1 Body mass index [BMI] 19.9 or less, adult; Z79.4 Long term (current) use of insulin; Z79.82 Long term (current) use of aspirin; Z79.899 Other long term (current) drug therapy
CPT/HCPCS: 15271; A6209; Q4121; A6196

== ENCOUNTER → 2023-10-14 | Outpatient (CLI) | payer OTHER, MEDICARE ==
[~2023-10-14] MED LIST changes: +LIDOCAINE HCL 4% LTA SOL 4 ML VIAL TP ONE
== END | disposition home or self-care (01) ==
LOC: WHH 10:50
PROVIDERS: ATTEND Podiatrist Foot & Ankle Surgery
DX: E11.622 Type 2 diabetes mellitus with other skin ulcer (principal); I70.233 Atherosclerosis of native arteries of right leg with ulceration of ankle; L97.312 Non-pressure chronic ulcer of right ankle with fat layer exposed; I70.202 Unspecified atherosclerosis of native arteries of extremities, left leg; E11.42 Type 2 diabetes mellitus with diabetic polyneuropathy; E11.51 Type 2 diabetes mellitus with diabetic peripheral angiopathy without gangrene; E11.22 Type 2 diabetes mellitus with diabetic chronic kidney disease; I13.0 Hypertensive heart and chronic kidney disease with heart failure and stage 1 through stage 4 chronic kidney disease, or unspecified chronic kidney disease; N18.4 Chronic kidney disease, stage 4 (severe); I50.22 Chronic systolic (congestive) heart failure; J44.9 Chronic obstructive pulmonary disease, unspecified; E78.2 Mixed hyperlipidemia; I25.2 Old myocardial infarction; I25.10 Atherosclerotic heart disease of native coronary artery without angina pectoris; M19.90 Unspecified osteoarthritis, unspecified site; F32.A Depression, unspecified; E66.9 Obesity, unspecified; Z68.1 Body mass index [BMI] 19.9 or less, adult; Z86.73 Personal history of transient ischemic attack (TIA), and cerebral infarction without residual deficits; Z79.4 Long term (current) use of insulin; Z79.82 Long term (current) use of aspirin; Z79.899 Other long term (current) drug therapy
CPT/HCPCS: 15271; A6209; Q4121

== ENCOUNTER → 2023-10-21 | Outpatient (CLI) | payer OTHER, MEDICARE ==
[~2023-10-21] MED LIST changes: -LIDOCAINE HCL 4% LTA SOL 4 ML VIAL TP ONE
== END | disposition home or self-care (01) ==
LOC: WHH 10:42
PROVIDERS: ATTEND Podiatrist Foot & Ankle Surgery
DX: E11.622 Type 2 diabetes mellitus with other skin ulcer (principal); I70.233 Atherosclerosis of native arteries of right leg with ulceration of ankle; L97.312 Non-pressure chronic ulcer of right ankle with fat layer exposed; I70.202 Unspecified atherosclerosis of native arteries of extremities, left leg; E11.42 Type 2 diabetes mellitus with diabetic polyneuropathy; E11.51 Type 2 diabetes mellitus with diabetic peripheral angiopathy without gangrene; E11.22 Type 2 diabetes mellitus with diabetic chronic kidney disease; I13.0 Hypertensive heart and chronic kidney disease with heart failure and stage 1 through stage 4 chronic kidney disease, or unspecified chronic kidney disease; N18.4 Chronic kidney disease, stage 4 (severe); I50.22 Chronic systolic (congestive) heart failure; J44.9 Chronic obstructive pulmonary disease, unspecified; E78.2 Mixed hyperlipidemia; I25.2 Old myocardial infarction; I25.10 Atherosclerotic heart disease of native coronary artery without angina pectoris; M19.90 Unspecified osteoarthritis, unspecified site; F32.A Depression, unspecified; E66.9 Obesity, unspecified; Z68.1 Body mass index [BMI] 19.9 or less, adult; Z86.73 Personal history of transient ischemic attack (TIA), and cerebral infarction without residual deficits; Z79.4 Long term (current) use of insulin; Z79.82 Long term (current) use of aspirin; Z79.899 Other long term (current) drug therapy
CPT/HCPCS: G0463; A6209

== ENCOUNTER → 2023-10-28 | Outpatient (CLI) | payer OTHER, MEDICARE | END | disposition home or self-care (01) | LOC: WHH 10:04 | PROVIDERS: ATTEND Podiatrist Foot & Ankle Surgery | DX: E11.622 Type 2 diabetes mellitus with other skin ulcer (principal); I70.233 Atherosclerosis of native arteries of right leg with ulceration of ankle; L97.312 Non-pressure chronic ulcer of right ankle with fat layer exposed; I70.202 Unspecified atherosclerosis of native arteries of extremities, left leg; E11.42 Type 2 diabetes mellitus with diabetic polyneuropathy; E11.51 Type 2 diabetes mellitus with diabetic peripheral angiopathy without gangrene; E11.22 Type 2 diabetes mellitus with diabetic chronic kidney disease; I13.0 Hypertensive heart and chronic kidney disease with heart failure and stage 1 through stage 4 chronic kidney disease, or unspecified chronic kidney disease; N18.4 Chronic kidney disease, stage 4 (severe); I50.22 Chronic systolic (congestive) heart failure; J44.9 Chronic obstructive pulmonary disease, unspecified; E78.2 Mixed hyperlipidemia; I25.2 Old myocardial infarction; I25.10 Atherosclerotic heart disease of native coronary artery without angina pectoris; M19.90 Unspecified osteoarthritis, unspecified site; F32.A Depression, unspecified; E66.9 Obesity, unspecified; Z68.1 Body mass index [BMI] 19.9 or less, adult; Z86.73 Personal history of transient ischemic attack (TIA), and cerebral infarction without residual deficits; Z79.4 Long term (current) use of insulin; Z79.82 Long term (current) use of aspirin; Z79.899 Other long term (current) drug therapy | CPT/HCPCS: 15271; A6209; Q4121 ==

== ENCOUNTER → 2023-11-04 | Outpatient (CLI) | payer OTHER, MEDICARE | END | disposition home or self-care (01) | LOC: WHH 10:33 | PROVIDERS: ATTEND Podiatrist Foot & Ankle Surgery | DX: E11.622 Type 2 diabetes mellitus with other skin ulcer (principal); I70.233 Atherosclerosis of native arteries of right leg with ulceration of ankle; L97.312 Non-pressure chronic ulcer of right ankle with fat layer exposed; I70.202 Unspecified atherosclerosis of native arteries of extremities, left leg; E11.42 Type 2 diabetes mellitus with diabetic polyneuropathy; E11.51 Type 2 diabetes mellitus with diabetic peripheral angiopathy without gangrene; E11.22 Type 2 diabetes mellitus with diabetic chronic kidney disease; I13.0 Hypertensive heart and chronic kidney disease with heart failure and stage 1 through stage 4 chronic kidney disease, or unspecified chronic kidney disease; N18.4 Chronic kidney disease, stage 4 (severe); I50.22 Chronic systolic (congestive) heart failure; J44.9 Chronic obstructive pulmonary disease, unspecified; E78.2 Mixed hyperlipidemia; I25.2 Old myocardial infarction; I25.10 Atherosclerotic heart disease of native coronary artery without angina pectoris; M19.90 Unspecified osteoarthritis, unspecified site; F32.A Depression, unspecified; E66.9 Obesity, unspecified; Z68.1 Body mass index [BMI] 19.9 or less, adult; Z86.73 Personal history of transient ischemic attack (TIA), and cerebral infarction without residual deficits; Z79.4 Long term (current) use of insulin; Z79.82 Long term (current) use of aspirin; Z79.899 Other long term (current) drug therapy | CPT/HCPCS: G0463; A6209; A4450 ==

== ENCOUNTER → 2023-11-11 | Outpatient (CLI) | payer OTHER, MEDICARE | END | disposition home or self-care (01) | LOC: WHH 09:38 | PROVIDERS: ATTEND Podiatrist Foot & Ankle Surgery | DX: E11.622 Type 2 diabetes mellitus with other skin ulcer (principal); I70.233 Atherosclerosis of native arteries of right leg with ulceration of ankle; L97.312 Non-pressure chronic ulcer of right ankle with fat layer exposed; I70.202 Unspecified atherosclerosis of native arteries of extremities, left leg; E11.42 Type 2 diabetes mellitus with diabetic polyneuropathy; E11.51 Type 2 diabetes mellitus with diabetic peripheral angiopathy without gangrene; E11.22 Type 2 diabetes mellitus with diabetic chronic kidney disease; I13.0 Hypertensive heart and chronic kidney disease with heart failure and stage 1 through stage 4 chronic kidney disease, or unspecified chronic kidney disease; N18.4 Chronic kidney disease, stage 4 (severe); I50.22 Chronic systolic (congestive) heart failure; J44.9 Chronic obstructive pulmonary disease, unspecified; E78.2 Mixed hyperlipidemia; I25.2 Old myocardial infarction; I25.10 Atherosclerotic heart disease of native coronary artery without angina pectoris; M19.90 Unspecified osteoarthritis, unspecified site; F32.A Depression, unspecified; E66.9 Obesity, unspecified; Z68.1 Body mass index [BMI] 19.9 or less, adult; Z86.73 Personal history of transient ischemic attack (TIA), and cerebral infarction without residual deficits; Z79.4 Long term (current) use of insulin; Z79.82 Long term (current) use of aspirin; Z79.899 Other long term (current) drug therapy | CPT/HCPCS: G0463; A6209 ==

== ENCOUNTER → 2023-11-18 | Outpatient (CLI) | payer OTHER, MEDICARE ==
[~2023-11-18] MED LIST changes: +LIDOCAINE HCL 4% LTA SOL 4 ML VIAL TP ONE
== END | disposition home or self-care (01) ==
LOC: WHH 10:49
PROVIDERS: ATTEND Podiatrist Foot & Ankle Surgery
DX: E11.622 Type 2 diabetes mellitus with other skin ulcer (principal); I70.233 Atherosclerosis of native arteries of right leg with ulceration of ankle; L97.311 Non-pressure chronic ulcer of right ankle limited to breakdown of skin; I70.202 Unspecified atherosclerosis of native arteries of extremities, left leg; S81.811A Laceration without foreign body, right lower leg, initial encounter; E11.42 Type 2 diabetes mellitus with diabetic polyneuropathy; E11.51 Type 2 diabetes mellitus with diabetic peripheral angiopathy without gangrene; E11.22 Type 2 diabetes mellitus with diabetic chronic kidney disease; I13.0 Hypertensive heart and chronic kidney disease with heart failure and stage 1 through stage 4 chronic kidney disease, or unspecified chronic kidney disease; N18.4 Chronic kidney disease, stage 4 (severe); I50.22 Chronic systolic (congestive) heart failure; J44.9 Chronic obstructive pulmonary disease, unspecified; E78.2 Mixed hyperlipidemia; I25.2 Old myocardial infarction; I25.10 Atherosclerotic heart disease of native coronary artery without angina pectoris; M19.90 Unspecified osteoarthritis, unspecified site; E66.9 Obesity, unspecified; F32.A Depression, unspecified; Z68.1 Body mass index [BMI] 19.9 or less, adult; Z86.73 Personal history of transient ischemic attack (TIA), and cerebral infarction without residual deficits; Z79.4 Long term (current) use of insulin; Z79.82 Long term (current) use of aspirin; Z79.899 Other long term (current) drug therapy; X58.XXXA Exposure to other specified factors, initial encounter; Y93.89 Activity, other specified; Y92.89 Other specified places as the place of occurrence of the external cause; Y99.8 Other external cause status
CPT/HCPCS: 11721; A6209

== ENCOUNTER → 2023-12-16 | Outpatient (CLI) | payer OTHER, MEDICARE | END | disposition home or self-care (01) | LOC: WHH 10:42 | PROVIDERS: ATTEND Podiatrist Foot & Ankle Surgery | DX: E11.622 Type 2 diabetes mellitus with other skin ulcer (principal); I70.233 Atherosclerosis of native arteries of right leg with ulceration of ankle; L97.312 Non-pressure chronic ulcer of right ankle with fat layer exposed; I70.202 Unspecified atherosclerosis of native arteries of extremities, left leg; S81.811D Laceration without foreign body, right lower leg, subsequent encounter; E11.42 Type 2 diabetes mellitus with diabetic polyneuropathy; E11.51 Type 2 diabetes mellitus with diabetic peripheral angiopathy without gangrene; E11.22 Type 2 diabetes mellitus with diabetic chronic kidney disease; I13.0 Hypertensive heart and chronic kidney disease with heart failure and stage 1 through stage 4 chronic kidney disease, or unspecified chronic kidney disease; N18.4 Chronic kidney disease, stage 4 (severe); I50.22 Chronic systolic (congestive) heart failure; J44.9 Chronic obstructive pulmonary disease, unspecified; E78.2 Mixed hyperlipidemia; I25.2 Old myocardial infarction; I25.10 Atherosclerotic heart disease of native coronary artery without angina pectoris; E66.9 Obesity, unspecified; M19.90 Unspecified osteoarthritis, unspecified site; F32.A Depression, unspecified; Z68.1 Body mass index [BMI] 19.9 or less, adult; Z86.73 Personal history of transient ischemic attack (TIA), and cerebral infarction without residual deficits; Z79.4 Long term (current) use of insulin; Z79.82 Long term (current) use of aspirin; Z79.899 Other long term (current) drug therapy; X58.XXXD Exposure to other specified factors, subsequent encounter | CPT/HCPCS: 11042; A6021; A6209 ==

== ENCOUNTER 2023-12-17 14:29 | Emergency (ER) | payer OTHER, MEDICARE ==
[~2023-12-17] VITALS: Ht 165.1 cm; Wt 81.2 kg
[~2023-12-17 14:29] MED LIST changes: -LIDOCAINE HCL 4% LTA SOL 4 ML VIAL TP ONE
[2023-12-17 15:42] LABS: INR 1.05 (0.85-1.15); PROTHROMBIN TIME 11.3 SEC (9.6-11.6)
[2023-12-17 15:43] LABS: PARTIAL THROMBOPLASTIN TIME 27.7 SEC (26.3-35.5)
[2023-12-17 15:52] LABS: ALBUMIN 2.9 g/dL (3.5-5.0); BILIRUBIN,TOTAL 0.3 mg/dL (0.2-1.0); CREATININE 1.3 mg/dL (0.5-1.0); POTASSIUM 3.9 mmol/L (3.5-5.1); TOTAL PROTEIN, SERUM 6.8 g/dL (6.0-8.3)
[2023-12-17 15:56] LABS: BASOPHILS # (AUTO) 0.02 K/uL (0.00-0.20); BASOPHILS % (AUTO) 0.4 % (0.0-5.0); EOSINOPHILS # (AUTO) 0.07 K/uL (0.00-0.70); EOSINOPHILS % (AUTO) 1.3 % (0.0-8.0); HEMATOCRIT 30.6 % (36-48); IMMATURE GRANULOCYTE ABSOLUTE 0.02 K/uL (0-1); LYMPHOCYTES # (AUTO) 1.8 K/uL (1.0-4.8); LYMPHOCYTES % (AUTO) 31.3 % (21.0-51.0); MEAN CORPUSCULAR HEMOGLOBIN 29.4 pg (27.0-33.0); MEAN CORPUSCULAR VOLUME 89.2 fL (79-99); MONOCYTES # (AUTO) 0.7 K/uL (0.1-1.0); MONOCYTES % (AUTO) 11.8 % (3.0-13.0); NEUTROPHILS # (AUTO) 3.1 K/uL (1.8-7.7); NEUTROPHILS % (AUTO) 54.8 % (40.0-77.0); PLATELET COUNT (AUTO) 164 K/uL (130-400); RED BLOOD CELL COUNT(AUTO) 3.43 MIL/uL (4.00-5.50); RED CELL DISTRIBUTION WIDTH 12.7 % (11.0-15.5); WHITE BLOOD COUNT (AUTO) 5.6 K/uL (4.8-10.8)
[2023-12-17 15:57] LABS: APPEARANCE,URINE CLEAR (CLEAR); BILIRUBIN,URINE NEGATIVE (NEGATIVE); COLOR,URINE COLORLESS (YELLOW); GLUCOSE, URINE (UA) 30 mg/dL (NEGATIVE); KETONES,URINE NEGATIVE (NEGATIVE); LEUKOCYTE ESTERASE ,URINE NEGATIVE Leu/uL (NEGATIVE); MUCUS,URINE RARE LPF (None Seen); NITRATE,URINE NEGATIVE (NEGATIVE); OCCULT BLOOD,URINE NEGATIVE (NEGATIVE); PROTEIN,URINE 50 mg/dL (NEGATIVE); SQUAMOUS EPITHELIAL CELL,UR RARE /HPF (0-2); UROBILINOGEN,URINE 0.2 mg/dL (0.2-1.0); WBC,URINE 0-1 /HPF (0-1)
[2023-12-17] MEDS: HYDRALAZINE 20MG/ML VIAL IV ONE ×2 (17:37→18:39)
[2023-12-17] MEDS: ACETAMINOPHEN 325 MG TAB PO ONE (17:47)
[2023-12-17] MEDS: ACETAMINOPHEN 325 MG TAB ONE (17:48)
[2023-12-17 19:00] VITALS: BP 184/52; PULSE 62; RESP 16; O2SAT 98
== END 2023-12-17 19:36 | disposition home or self-care (01) ==
LOC: EDH 14:29
DX: R53.1 Weakness (principal); I10 Essential (primary) hypertension; E11.9 Type 2 diabetes mellitus without complications; K21.9 Gastro-esophageal reflux disease without esophagitis; E78.00 Pure hypercholesterolemia, unspecified; Z79.4 Long term (current) use of insulin; Z79.899 Other long term (current) drug therapy; Z98.890 Other specified postprocedural states
CPT/HCPCS: 99285; 70450; 96374; 82550; 84484; 80053; 85025; 85610; 85730; 83605; 81001; 36415; 74176; 96376; 93005; 84145; J0360 ×2

== ENCOUNTER → 2023-12-30 | Outpatient (CLI) | payer OTHER, MEDICARE | END | disposition home or self-care (01) | LOC: WHH 10:39 | PROVIDERS: ATTEND Podiatrist Foot & Ankle Surgery | DX: E11.622 Type 2 diabetes mellitus with other skin ulcer (principal); I70.233 Atherosclerosis of native arteries of right leg with ulceration of ankle; L97.312 Non-pressure chronic ulcer of right ankle with fat layer exposed; I70.202 Unspecified atherosclerosis of native arteries of extremities, left leg; E11.42 Type 2 diabetes mellitus with diabetic polyneuropathy; E11.51 Type 2 diabetes mellitus with diabetic peripheral angiopathy without gangrene; E11.22 Type 2 diabetes mellitus with diabetic chronic kidney disease; I13.0 Hypertensive heart and chronic kidney disease with heart failure and stage 1 through stage 4 chronic kidney disease, or unspecified chronic kidney disease; N18.4 Chronic kidney disease, stage 4 (severe); I50.22 Chronic systolic (congestive) heart failure; J44.9 Chronic obstructive pulmonary disease, unspecified; E78.2 Mixed hyperlipidemia; I25.2 Old myocardial infarction; I25.10 Atherosclerotic heart disease of native coronary artery without angina pectoris; E66.9 Obesity, unspecified; M19.90 Unspecified osteoarthritis, unspecified site; F32.A Depression, unspecified; Z86.73 Personal history of transient ischemic attack (TIA), and cerebral infarction without residual deficits; Z79.4 Long term (current) use of insulin; Z79.82 Long term (current) use of aspirin; Z79.899 Other long term (current) drug therapy | CPT/HCPCS: 11042; A6021; A6209 ==

== ENCOUNTER → 2023-12-31 | Outpatient (CLI) | payer OTHER, MEDICARE | END | disposition home or self-care (01) | LOC: RAH 13:57 | PROVIDERS: ATTEND Internal Medicine | DX: Z01.818 Encounter for other preprocedural examination (principal); I51.7 Cardiomegaly; I70.0 Atherosclerosis of aorta; M47.815 Spondylosis without myelopathy or radiculopathy, thoracolumbar region | CPT/HCPCS: 71046 ==

== ENCOUNTER → 2024-01-13 | Outpatient (CLI) | payer OTHER, MEDICARE ==
[~2024-01-13] MED LIST changes: +LIDOCAINE HCL 4% LTA SOL 4 ML VIAL TP ONE
== END | disposition home or self-care (01) ==
LOC: WHH 10:39
PROVIDERS: ATTEND Podiatrist Foot & Ankle Surgery
DX: E11.622 Type 2 diabetes mellitus with other skin ulcer (principal); I70.233 Atherosclerosis of native arteries of right leg with ulceration of ankle; L97.312 Non-pressure chronic ulcer of right ankle with fat layer exposed; I70.202 Unspecified atherosclerosis of native arteries of extremities, left leg; E11.42 Type 2 diabetes mellitus with diabetic polyneuropathy; E11.51 Type 2 diabetes mellitus with diabetic peripheral angiopathy without gangrene; E11.22 Type 2 diabetes mellitus with diabetic chronic kidney disease; I13.0 Hypertensive heart and chronic kidney disease with heart failure and stage 1 through stage 4 chronic kidney disease, or unspecified chronic kidney disease; N18.4 Chronic kidney disease, stage 4 (severe); I50.32 Chronic diastolic (congestive) heart failure; J44.9 Chronic obstructive pulmonary disease, unspecified; E78.2 Mixed hyperlipidemia; I25.2 Old myocardial infarction; I25.10 Atherosclerotic heart disease of native coronary artery without angina pectoris; E66.9 Obesity, unspecified; M19.90 Unspecified osteoarthritis, unspecified site; F32.A Depression, unspecified; Z86.73 Personal history of transient ischemic attack (TIA), and cerebral infarction without residual deficits; Z79.4 Long term (current) use of insulin; Z79.82 Long term (current) use of aspirin; Z79.899 Other long term (current) drug therapy
CPT/HCPCS: G0463; A6021; A4450

== ENCOUNTER → 2024-01-27 | Outpatient (CLI) | payer OTHER, MEDICARE | END | disposition home or self-care (01) | LOC: WHH 10:09 | PROVIDERS: ATTEND Podiatrist Foot & Ankle Surgery | DX: E11.622 Type 2 diabetes mellitus with other skin ulcer (principal); I70.233 Atherosclerosis of native arteries of right leg with ulceration of ankle; L97.312 Non-pressure chronic ulcer of right ankle with fat layer exposed; I70.202 Unspecified atherosclerosis of native arteries of extremities, left leg; E11.42 Type 2 diabetes mellitus with diabetic polyneuropathy; E11.51 Type 2 diabetes mellitus with diabetic peripheral angiopathy without gangrene; E11.22 Type 2 diabetes mellitus with diabetic chronic kidney disease; I13.0 Hypertensive heart and chronic kidney disease with heart failure and stage 1 through stage 4 chronic kidney disease, or unspecified chronic kidney disease; N18.4 Chronic kidney disease, stage 4 (severe); I50.32 Chronic diastolic (congestive) heart failure; E78.00 Pure hypercholesterolemia, unspecified; J44.9 Chronic obstructive pulmonary disease, unspecified; I25.2 Old myocardial infarction; I25.10 Atherosclerotic heart disease of native coronary artery without angina pectoris; E66.9 Obesity, unspecified; M19.90 Unspecified osteoarthritis, unspecified site; F32.A Depression, unspecified; Z86.73 Personal history of transient ischemic attack (TIA), and cerebral infarction without residual deficits; Z79.4 Long term (current) use of insulin; Z79.82 Long term (current) use of aspirin; Z79.899 Other long term (current) drug therapy | CPT/HCPCS: G0463; A6021 ==

== ENCOUNTER → 2024-03-02 | Outpatient (CLI) | payer OTHER, MEDICARE | END | disposition home or self-care (01) | LOC: WHH 09:45 | PROVIDERS: ATTEND Podiatrist Foot & Ankle Surgery | DX: E11.622 Type 2 diabetes mellitus with other skin ulcer (principal); I70.233 Atherosclerosis of native arteries of right leg with ulceration of ankle; L97.312 Non-pressure chronic ulcer of right ankle with fat layer exposed; I70.202 Unspecified atherosclerosis of native arteries of extremities, left leg; E11.42 Type 2 diabetes mellitus with diabetic polyneuropathy; E11.22 Type 2 diabetes mellitus with diabetic chronic kidney disease; I13.0 Hypertensive heart and chronic kidney disease with heart failure and stage 1 through stage 4 chronic kidney disease, or unspecified chronic kidney disease; N18.4 Chronic kidney disease, stage 4 (severe); I50.32 Chronic diastolic (congestive) heart failure; E78.00 Pure hypercholesterolemia, unspecified; J44.9 Chronic obstructive pulmonary disease, unspecified; I25.2 Old myocardial infarction; I25.10 Atherosclerotic heart disease of native coronary artery without angina pectoris; E66.9 Obesity, unspecified; M19.90 Unspecified osteoarthritis, unspecified site; F32.A Depression, unspecified; Z86.73 Personal history of transient ischemic attack (TIA), and cerebral infarction without residual deficits; Z79.4 Long term (current) use of insulin; Z79.82 Long term (current) use of aspirin; Z98.49 Cataract extraction status, unspecified eye; Z79.899 Other long term (current) drug therapy | CPT/HCPCS: G0463; A6212; A6021 ==

== ENCOUNTER → 2024-03-16 | Outpatient (CLI) | payer OTHER, MEDICARE ==
[~2024-03-16] MED LIST changes: -LIDOCAINE HCL 4% LTA SOL 4 ML VIAL TP ONE
== END | disposition home or self-care (01) ==
LOC: WHH 09:35
PROVIDERS: ATTEND Podiatrist Foot & Ankle Surgery
DX: E11.622 Type 2 diabetes mellitus with other skin ulcer (principal); I70.233 Atherosclerosis of native arteries of right leg with ulceration of ankle; L97.311 Non-pressure chronic ulcer of right ankle limited to breakdown of skin; I70.202 Unspecified atherosclerosis of native arteries of extremities, left leg; E11.42 Type 2 diabetes mellitus with diabetic polyneuropathy; E11.51 Type 2 diabetes mellitus with diabetic peripheral angiopathy without gangrene; E11.22 Type 2 diabetes mellitus with diabetic chronic kidney disease; I13.0 Hypertensive heart and chronic kidney disease with heart failure and stage 1 through stage 4 chronic kidney disease, or unspecified chronic kidney disease; N18.4 Chronic kidney disease, stage 4 (severe); I50.32 Chronic diastolic (congestive) heart failure; E78.00 Pure hypercholesterolemia, unspecified; J44.9 Chronic obstructive pulmonary disease, unspecified; I25.2 Old myocardial infarction; I25.10 Atherosclerotic heart disease of native coronary artery without angina pectoris; E66.9 Obesity, unspecified; M19.90 Unspecified osteoarthritis, unspecified site; F32.A Depression, unspecified; Z86.73 Personal history of transient ischemic attack (TIA), and cerebral infarction without residual deficits; Z79.4 Long term (current) use of insulin; Z79.82 Long term (current) use of aspirin; Z98.49 Cataract extraction status, unspecified eye; Z79.899 Other long term (current) drug therapy
CPT/HCPCS: G0463; A6212; A6021

== ENCOUNTER → 2024-03-23 | Outpatient (CLI) | payer OTHER, MEDICARE ==
[~2024-03-23] MED LIST changes: +LIDOCAINE HCL 4% LTA SOL 4 ML VIAL TP ONE
== END | disposition home or self-care (01) ==
LOC: WHH 09:41
PROVIDERS: ATTEND Podiatrist Foot & Ankle Surgery
DX: E11.622 Type 2 diabetes mellitus with other skin ulcer (principal); I70.243 Atherosclerosis of native arteries of left leg with ulceration of ankle; L97.311 Non-pressure chronic ulcer of right ankle limited to breakdown of skin; I70.202 Unspecified atherosclerosis of native arteries of extremities, left leg; E11.42 Type 2 diabetes mellitus with diabetic polyneuropathy; E11.51 Type 2 diabetes mellitus with diabetic peripheral angiopathy without gangrene; E11.22 Type 2 diabetes mellitus with diabetic chronic kidney disease; I13.0 Hypertensive heart and chronic kidney disease with heart failure and stage 1 through stage 4 chronic kidney disease, or unspecified chronic kidney disease; N18.4 Chronic kidney disease, stage 4 (severe); I50.32 Chronic diastolic (congestive) heart failure; E78.00 Pure hypercholesterolemia, unspecified; J44.9 Chronic obstructive pulmonary disease, unspecified; I25.2 Old myocardial infarction; I25.10 Atherosclerotic heart disease of native coronary artery without angina pectoris; E66.9 Obesity, unspecified; M19.90 Unspecified osteoarthritis, unspecified site; F32.A Depression, unspecified; Z86.73 Personal history of transient ischemic attack (TIA), and cerebral infarction without residual deficits; Z79.4 Long term (current) use of insulin; Z79.82 Long term (current) use of aspirin; Z98.49 Cataract extraction status, unspecified eye; Z79.899 Other long term (current) drug therapy
CPT/HCPCS: G0463; A6212

== ENCOUNTER → 2024-11-28 | Outpatient (CLI) | payer OTHER, MEDICARE ==
[~2024-11-28] MED LIST changes: -LIDOCAINE HCL 4% LTA SOL 4 ML VIAL TP ONE
--- NOTE | 2024-11-29 06:29 | HMCIMG ---
EXAM: CR Right Foot, 2 views. CLINICAL HISTORY: Wound. Cellulitis. COMPARISON: None provided. FINDINGS: Focal cortical irregularity in the lateral aspect of the distal tuft of the first toe distal phalanx. Osteopenia. Moderate osteoarthritis. Atherosclerotic vascular calcifications. Large plantar and small posterior calcaneal enthesophytes. Questionable soft tissue ulceration anterior to the ankle. Diffuse soft tissue swelling, most pronounced in the great toe. IMPRESSION: Focal cortical irregularity in the lateral aspect of the distal tuft of the first toe distal phalanx, please check clinically for local tenderness, CT scan of the right foot may be done to rule out a nondisplaced fracture. Osteopenia. Moderate osteoarthritis. Questionable soft tissue ulceration anterior to the ankle. /[place]
--- NOTE | 2024-11-29 06:34 | HMCIMG ---
EXAM: CR Right Ankle, 2 views. CLINICAL HISTORY: Wound. Cellulitis. COMPARISON: None provided. FINDINGS: No acute fracture or aggressive appearing osseous lesion. Soft tissue ulceration anterior to the ankle. Diffuse soft tissue swelling. Atherosclerotic vascular calcifications. Mild osteopenia. Mild to moderate osteoarthritis. Large plantar and small posterior calcaneal enthesophytes. IMPRESSION: No acute bony abnormality is evident. Soft tissue ulceration anterior to the ankle. Diffuse soft tissue swelling. Atherosclerotic vascular calcifications. Mild osteopenia. Mild to moderate osteoarthritis. Large plantar and small posterior calcaneal enthesophytes. /[place]
== END | disposition home or self-care (01) ==
LOC: RAH 16:14
PROVIDERS: ATTEND Internal Medicine
DX: M19.071 Primary osteoarthritis, right ankle and foot (principal); M77.31 Calcaneal spur, right foot; M79.89 Other specified soft tissue disorders; M25.871 Other specified joint disorders, right ankle and foot; M85.871 Other specified disorders of bone density and structure, right ankle and foot; L03.90 Cellulitis, unspecified
CPT/HCPCS: 73600; 73620

== ENCOUNTER → 2024-12-26 | Outpatient (CLI) | payer OTHER, MEDICARE ==
--- NOTE | 2024-12-26 16:25 | HMCIMG ---
EXAM: CT Right Foot, without IV contrast CLINICAL HISTORY: Pain in right foot. TECHNIQUE: Axial images were acquired through the right foot without IV contrast. Reformatted images were reviewed. Dose reduction technique was used including one or more of the following: automated exposure control, adjustment of mA and kV according to patient size, and/or iterative reconstruction. COMPARISON: None provided. FINDINGS: BONES: No definite fracture is identified. Diffuse osteopenia is seen. Posterior inferior calcaneal spurs are seen. The metatarsals are visualized, and there is no CT evidence for osteomyelitis. JOINTS: No dislocation. The joint spaces are normal. SOFT TISSUES: Diffuse dorsal soft tissue edema is present. IMPRESSION: 1. No acute osseous abnormality. 2. Diffuse dorsal soft tissue edema. 3. Extensive atherosclerotic vhanges seen. /[place]
== END | disposition home or self-care (01) ==
LOC: RAH 14:40
PROVIDERS: ATTEND Internal Medicine
DX: R60.0 Localized edema (principal); M85.871 Other specified disorders of bone density and structure, right ankle and foot; M77.31 Calcaneal spur, right foot; L97.519 Non-pressure chronic ulcer of other part of right foot with unspecified severity; M79.671 Pain in right foot
CPT/HCPCS: 73700